=== PATIENT | female | born 1980 | race Caucasian/White ===

== ENCOUNTER 2024-12-28 10:04 | Observation (INO) ==
[2024-12-28] MEDS: ALBUT/IPRATROP 3MG/0.5MG NEB 3 ML VIAL NEB STA (11:13)
[2024-12-28] MEDS: methylPREDNISolone 125 MG/2 ML VIAL IV STA (11:13)
[2024-12-28] MEDS: LORazepam 1 MG TAB SL STA (11:30)
--- NOTE | 2024-12-28 11:32 | XRay Report ---
XR chest 1V portable CLINICAL HISTORY: Chest pain, nonspecific COMPARISON STUDY: No previous studies for comparison. FINDINGS: Lung volumes are normal. Lungs are clear. There is no pneumothorax or pleural effusion. The re is mild enlargement of the cardiac silhouette. Mediastinal contours are normal. There is no eviden ce for pulmonary edema. IMPRESSION: No acute cardiopulmonary findings. Mild enlargement of the cardiac silhouette. ACT 112: Negative or not required by law. Electronically signed by: Jose M Lewis M.D. 12/28/2024 11:31 AM
[2024-12-28 11:34] LABS: Basophils # (auto) 0.06 K/uL (0.00-0.20); Basophils % (auto) 0.8 %; Eosinophils # (auto) 0.16 K/uL (0.00-0.50); Eosinophils % (auto) 2.1 %; Hematocrit (blood only) 37.7 % (37.0-47.0); Hemoglobin 12.5 g/dl (12.0-16.0); Immature Granulocytes # (auto) 0.03 K/uL (0.01-0.20); Immature Granulocytes % (auto) 0.4 %; Lymphocytes # (auto) 2.22 K/uL (1.20-3.40); Lymphocytes % (auto) 29.8 %; Mean Corpuscular Hemoglobin 28.7 pg (25.0-34.0); Mean Corpuscular Hgb Conc 33.2 g/dL (32.0-36.0); Mean Corpuscular Volume 86.5 fL (80.0-100.0); Monocytes # (auto) 0.56 K/uL (0.11-0.59); Monocytes % (auto) 7.5 %; Neutrophils # (auto) 4.43 K/uL (1.40-6.50); Neutrophils % (auto) 59.4 %; Platelet Count 240 K/uL (130-400); RDW Coefficient of Variation 13.8 % (11.5-14.5); RDW Standard Deviation 43.8 fL (36.4-46.3); Red Blood Count 4.36 M/uL (4.20-5.40); White Blood Count 7.46 K/ul (4.8-10.8)
[2024-12-28 11:44] LABS: Bilirubin,Total 0.4 mg/dl (0.2-1.0); Calcium 8.4 mg/dl (8.6-10.3); Potassium 3.5 mmol/L (3.5-5.1)
[2024-12-28 11:50] LABS: Albumin Globulin Ratio 1.3 (0.9-2); BUN Creatinine Ratio 10.6 (10-20)
[2024-12-28 12:06] LABS: Troponin I High Sensitivity 16.3 pg/ml (0-14)
[2024-12-28 12:09] LABS: Adenovirus PCR Not Detected (NotDetected); Bordetella parapertussis PCR Not Detected (NotDetected); Bordetella pertussis PCR Not Detected (NotDetected); Chlamydia pneumoniae PCR Not Detected (NotDetected); Coronavirus 229E PCR Not Detected (NotDetected); Coronavirus CoV-2 (COVID19)PCR Not Detected (NotDetected); Coronavirus HKU1 PCR Not Detected (NotDetected); Coronavirus NL63 PCR Not Detected (NotDetected); Coronavirus OC43PCR DETECTED (NotDetected); Human Metapneumovirus PCR Not Detected (NotDetected); Influenza A PCR Not Detected (NotDetected); Influenza B PCR Not Detected (NotDetected); Mycoplasma pneumoniae PCR Not Detected (NotDetected); Parainfluenza Virus 1 PCR Not Detected (NotDetected); Parainfluenza Virus 2 PCR Not Detected (NotDetected); Parainfluenza Virus 3 PCR Not Detected (NotDetected); Parainfluenza Virus 4 PCR Not Detected (NotDetected); Respiratory Syncytial VirusPCR Not Detected (NotDetected); Rhinovirus/Enterovirus PCR Not Detected (NotDetected)
--- NOTE | 2024-12-28 13:40 | History & Physical Report ---
Date of Service December 28, 2024 Assessment & Plan (1) Chest pain: (2) Coronavirus infection: (3) Hypertensive urgency: Plan Liza Verdugo is a 44y/o F with PMHx significant for CAD, UT in 2023, asthma, GERD, fibromyalgia, bipolar disorder, tobacco use disorder and drug a buse in remission who presented to the ED via EMS from [facility] in [place] with complaints of cough, SOB and chest pain. Refer to HPI for further details. Chest Pain - ACS R/O CAD, H/O UT in January 2024: Appears pleuritic in nature 2/2 persistent cough ISO coronavirus OC43 infection. EKG NSR, no acute ST changes. Initial troponin 16.3 --> repeat troponin 22.5; will continue to trend troponin Q4H for now. Obtain resting echocardiogram. Telemetry monitoring. Starting metoprolol succinate 25mg daily. Consider cardiology consult if troponin uptrending or recurrent chest pain. EKG daily x 2. EKG with chest pain PRN. Coronavirus OC43 Infection: Doxycycline 100mg BID x 5 days for suspected superimposed bacterial bronchitis. Supportive care with PRN Duonebs, PRN Tessalon Perles. Encourage ISP and flutter valve use. Mucinex BID. Noted TTP of L upper calf region on exam. Check BLE venous doppler US to r/o DVTs. Continue 81mg ASA daily. HTN Urgency: BP elevated at 163/103 at the time of admission. Starting metoprolol succinate 25mg daily as per above. Also starting losartan 25mg daily. Continue to monitor BP closely and titrate meds PRN. IV labetalol 5mg Q4H PRN for SBP>170. Other Chronic Medical Conditions: Tobacco Use Disorder - Nicotine patch ordered. Drug Abuse in Remission - Continue Suboxone. Bipolar Disorder - Continue Ativan. DVT Prophylaxis: SQ Lovenox Code Status: FULL CODE PCP: NO PCP - Recently relocated to [place], [place] from [place], [place]. Will need to get patient established with a PCP. Disposition: Admit to Med/Telemetry for further inpatient evaluation and management. Patient seen in collaboration with Dr. Plata. Please see addendum. I spent a total of 45 minutes coordinating, documenting, and providing care for this patient excluding time spent in the performance of separately billed services or time spent by another provider/QHP. This included personally reviewing all current laboratories and imaging studies, medical reconciliation, outpatient chart review and discussion with specialists. This chart was completed in part utilizing Speech Voice Recognition Software. Grammatical errors, random word insertions, pronoun errors, and incomplete sentences are an occasional consequence of this system due to software limitations, ambient noise, and hardware issues. Any formal questions or concerns about the content, text, or information contained within the body of this dictation should be directly addressed to the provider for clarification. History of Present Illness Chief Complaint: URI Symptoms x 1 Week, Chest Pain Primary Care Provider: NO PCP Liza Verdugo is a 44y/o F with PMHx significant for CAD, UT in 2023, asth ma, GERD, fibromyalgia, bipolar disorder, tobacco use disorder and drug abuse in remission who presented to the ED via EMS from [facility] in [place] with complaints of cough, SOB and chest pain. History obtained from the patient and associated chart review. Patient reports that she recently moved back to [place], [place] from [place] about 1 month ago. She is originally from [place], [place]. She endorses having URI symptoms for the past week including sinus congestion, productive cough, intermittent fevers and SOB. She reports that her cough has become more frequent and is productive of green/yellow sputum. Had a fever last of 101.4F which she treated with Tylenol. No further fevers recorded since then. She has been taking [id number] Mucinex without much improvement in her congestion. Known history of asthma. Unfortunately did not have an albuterol inhaler available at home due to prior lapse in health insurance. S/p 60mg IV Solu-Medrol, albuterol neb x 1 and 1mg SL Ativan in the ED. Feels her breathing is improved at the time of our conversation. She woke up this morning with L-sided chest pain that radiated up into her L neck region and was worse with deep breathing. Patient mentions that this has happened a few times before since her URI symptoms started but seemed slightly worse compared to previous episodes therefore she decided to go to [facility] in [place] for evaluation today given her prior cardiac history before ultimately being transferred here for further evaluation. S/p 324mg ASA and SL nitroglycerin x 1 en route to ED. She reports improvement in her chest pain at the time of our conversation but does mention it reoccurs when she takes a deep breath. She also notes some pain in her L calf region which started last evening. Of note, patient has been increasingly sedentary since her URI symptoms started last week. She endorses a history of "floating blood clots" in her LLE back in either 2019 or 2020 but denies any prior anticoagulation use. She does smoke about 1ppd, which she has been doing since she has been a teenager. No alcohol use. Reports history of narcotic pain medication abuse but is in remission of daily Suboxone therapy. Also endorses recreational marijuana use. Not currently established with a PCP in the area. Recently was able to get health insurance a few weeks ago. Previous UT back in January 2024 where she was admitted to [facility] in [place], [place]. Had a cardiac catheterization done at that time with no stents placed however she mentions she was told she had CAD. Unfortunately she has had poor cardiology follow-up as an outpatient due to her prior lapse in health insurance and she is not in possession of any of her prior medical records. BP was 227/109 per EMS during their initial evaluation. BP was 163/103 at the time of my evaluation. Otherwise she remains hemodynamically stable. Saturating well on RA. CXR with no evidence of consolidation. Allergies Allergy/AdvReac Type Severity Reaction Status Date / Time codeine Allergy Intermediate RASH Unverified 12/28/24 14:01 ketorolac Allergy Mild RASH Verified 12/28/24 14:01 morphine Allergy Mild RASH Unverified 12/28/24 14:01 tromethamine Allergy Mild RASH Verified 12/28/24 14:01 azithromycin AdvReac Mild Abdominal Verified 12/28/24 14:01 Pain Home Medications Medication Instructions Recorded Confirmed Type aspirin 81 mg tablet,delayed 81 mg PO DAILY 12/28/24 12/28/24 History release buprenorphine 8 mg-naloxone 2 mg 0.5 - 1 tab sublingual TID 12/28/24 12/28/24 History sublingual tablet lorazepam 2 mg tablet 2 mg PO TID 12/28/24 12/28/24 History potassium 99 mg tablet 99 mg PO DAILY 12/28/24 12/28/24 History Past Med/Surg History Problem List (Updated 12/28/24 @ 15:22 by Emelyn Rodriguez PA-C) Hypertensive urgency Chest pain Coronavirus infection Social History Smoking Status: Current every day smoker Tobacco Type: Cigarettes Cigarettes Per Day: 30; Second Hand Exposure: No; Do You Dip or Chew Tobacco: No; Hx Alcohol Use: No Hx Substance Use: No Preferred Language: Cypriot Communication Ability: Effective Vehicle Refinisher Required: No Beliefs That Will Affect Care: None Current Living Situation: Alone Other Information That Helps Us Care for You: No Feels Safe at Home: Yes Safety Concerns: Feels Safe At This Time Assistive Devices: Contacts and Glasses Review of Systems Review of Systems: At least ten systems reviewed and negative, except as noted in the HPI. Physical Exam Physical Exam: General: WD/WN, vitals as above, NAD, sitting up in bed, conversing appropriately. A+Ox3. HEENT: Normocephalic, atraumatic. Conjunctivae normal. External ear and nose normal, oropharynx normal. Respiratory: Normal respiratory effort, lungs clear to auscultation, no wheeze/rales/rhonchi. No accessory muscle use. Cardiovascular: Regular rate, rhythm, normal peripheral pulses, no BLE edema. TTP of L upper calf region. Abdomen/GI: Normal bowel sounds, soft, nondistended, nontender to palpation in all quadrants. Extremities/Musculoskeletal: No cyanosis or clubbing, extremities motor strength intact, moves all extremities. Neurologic: No overt focal deficits, CN's II-XI not formally tested but appear grossly intact bilaterally. Results & Data Results & Data Vital Signs (Past 12 Hours) Vital Signs Temp Pulse Resp BP Pulse Ox O2 Del Method 12/28/24 13:00 149/84 H 12/28/24 12:57 71 16 96 12/28/24 12:30 70 15 95 12/28/24 12:03 68 13 94 12/28/24 12:00 154/86 H 12/28/24 11:57 65 15 94 12/28/24 11:33 69 17 95 12/28/24 11:33 95 Room Air 12/28/24 11:30 166/91 H 12/28/24 11:27 65 14 100 12/28/24 11:09 67 17 95 12/28/24 11:00 169/100 H 12/28/24 10:36 78 19 98 12/28/24 10:35 86 12/28/24 10:33 103 H 17 97 12/28/24 10:31 170/89 H 12/28/24 10:29 98 Room Air 12/28/24 10:08 37.2 C 82 20 148/99 H 98 Room Air Laboratory Results Short CBC 12/28/24 Range/Units 10:13 WBC 7.46 (4.8-10.8) K/ul Hgb 12.5 (12.0-16.0) g/dl Hct 37.7 (37.0-47.0) % Plt Count 240 (130-400) K/uL BMP 12/28/24 10:13 Sodium 138 Potassium 3.5 Chloride 102 Carbon Dioxide 28 BUN 7 Creatinine 0.66 Glucose 112 H Calcium 8.4 L Liver Function 12/28/24 Range/Units 10:13 Total Bilirubin 0.4 (0.2-1.0) mg/dl AST 22 (13-39) U/L ALT 15 (7-52) U/L Alkaline Phosphatase 64 (34-104) U/L Albumin 4.0 (3.4-5.0) gm/dl Diagnostic Findings Chest X-Ray 12/28/24 11:04 XR chest 1V portable CLINICAL HISTORY: Chest pain, nonspecific COMPARISON STUDY: No previous studies for comparison. FINDINGS: Lung volumes are normal. Lungs are clear. There is no pneumothorax or pleural effusion. There is mild enlargement of the cardiac silhouette. Mediastinal contours are normal. There is no evidence for pulmonary edema. IMPRESSION: No acute cardiopulmonary findings. Mild enlargement of the cardiac silhouette. ACT 112: Negative or not required by law. Electronically signed by: Jose M Lewis M.D. 12/28/2024 11:31 AM Medications Administered Discontinued Medications Albuterol (Albut/Ipratrop 3mg/0.5mg Neb 3 Ml Vial) 3 ml NEB NOW STA; Protocol Stop: 12/28/24 11:06 Last Admin: 12/28/24 11:13 Dose: 3 ml Documented By: KEYUR Lorazepam (Lorazepam 1 Mg Tab) 1 mg SL NOW STA Stop: 12/28/24 11:21 Last Admin: 12/28/24 11:30 Dose: 1 mg Documented By: KEYUR Methylprednisolone (Methylprednisolone 125 Mg/2 Ml Vial) 60 mg IV NOW STA Stop: 12/28/24 11:06 Last Admin: 12/28/24 11:13 Dose: 60 mg Documented By: TNK Code Status & VTE Plan Code Status FULL CODE Supervising Physician Co-Signing Physician Notes 44y/o F with PMH of CAD, UT in January 2024 [no stents per pt, pt failed to f/u w/ cardio after that, says due to insurance issues], asthma, GERD, fibromyalgia, bipolar disorder, tobacco use disorder and prescription drug abuse in remission who presented to the ED via EMS with complaints of cough, SOB and chest pain mostly w/ deep breathing, starting last evening. Pt reports flu like illness for about a week, cough w/ greenish sputum, fever upto 101.4F about a week ago. Yesterday had left sided chest pain, worse w/ deep breathing, going up to her left neck. S/p 324mg ASA and SL nitroglycerin x 1 en route to ED per EMS. Pt reports improvement in chest pain but reports she gets it still w/ deep breath. Labs reviewed, cbc/rft fairly wnl. Trop 16.3 --> 22.5. LFT and lipase wnl. Coronavirus +ve. EKG w/ NSR, no acute ST-T changes. CXR w/ enlarged cardiac silhouette, no acute findings. coronavirus (non covid) URTI Likely superimposed bacterial bronchitis Tessalon Perles, Mucinex, DuoNebs as needed, supportive management, doxycycline. Incentive spirometer. Chest pain rule out ACS: Chest pain appears pleuritic in nature, given recent history of UT and non compliance, will trend troponin & get echo. Consider cardiology consult if troponin uptrending or recurrent chest pain. Will start her on metoprolol succinate 25 Mg daily. Hypertensive urgency: Blood pressure elevated at presentation, patient being started on metoprolol, start losartan 25 mg daily starting today. Gradually uptitrate blood pressure medication. Labetalol 5 Mg every 4 hours as needed for systolic pressure greater than 170 mmHg. Tobacco abuse: nicotine patch Pt reports calf pain, and states she was told she had dvt in the past but never prescribed blood thinner. will get doppler ble us to ro dvt. On exam: GENERAL: Alert and oriented x3. NAD, on RA. HEENT: No pallor, no icterus. Pupils equal, round and reactive to light. Oral mucosa moist. NECK: No JVD, no neck masses. HEART: S1 and S2 heard. Regular rate and rhythm. HR in 90s. No murmur, no gallop. RESPIRATORY SYSTEM: Normal AP diameter. No accessory muscle use. No wheezing, no crackles. CTA ABDOMEN: Soft, bowel sounds present, nontender, no distention. CENTRAL NERVOUS SYSTEM: No facial droop. Speech is clear. Obeys simple commands. Moves extremities. EXTREMITIES: No edema, no erythema seen. I have seen and examined the patient and have discussed the case with the provider above. I agree with the assessment and plan as stated. Time spent: 35 min (1) Chest pain Chest pain type: unspecified Qualified Code(s): R07.9 - Chest pain, unspecified
--- NOTE | 2024-12-28 15:32 | Ultrasound Report ---
BILATERAL LOWER EXTREMITY VENOUS DOPPLER HISTORY: Acute pain and swelling of the lower legs R/o DVT COMPARISON STUDY: None. FINDINGS: There is normal compressibility, flow, and augmentation within the bilateral lower extremit y deep venous systems. IMPRESSION: No DVT within the right or left lower extremity. ACT 112: Negative or not required by law. Electronically signed by: Niko Kearney M.D. 12/28/2024 3:31 PM
[2024-12-28] MEDS: ADVANCED PROBIOTIC 625 MG CAPSULE PO STA (16:07)
[2024-12-28] MEDS: METOPROLOL SUCC 25MG EXT REL TAB PO SCH (16:07)
[2024-12-28] MEDS: DOXYCYCLINE HYCLATE 100 MG CAP PO STA (16:07)
[2024-12-28] MEDS ORDERED: LEVALBUTEROL HCL 0.63 MG/3 ML NEB NEB PRN (17:27)
[2024-12-28] MEDS ORDERED: ACETAMINOPHEN 325 MG TAB PO PRN (17:27)
[2024-12-28] MEDS ORDERED: POLYETHYLENE (MIRALAX) 17 GM PACK PO PRN (17:27)
[2024-12-28] MEDS ORDERED: ALBUT/IPRATROP 3MG/0.5MG NEB 3 ML VIAL NEB PRN (17:27)
[2024-12-28] MEDS ORDERED: LABETALOL HCL IV 5 MG/ML 20ML IV PRN (17:27)
[2024-12-28] MEDS ORDERED: MAGNESIUM HYDROXIDE SUSP 30 ML UDC PO PRN (17:27)
[2024-12-28] MEDS ORDERED: ONDANSETRON INJ 2 MG/ML 2 ML VIAL IV PRN (17:27)
[2024-12-28] MEDS ORDERED: BENZONATATE 100 MG CAPSULE PO PRN (17:27)
[2024-12-28] MEDS ORDERED: ALUMINUM/MAGNESIUM SUSP 30 ML UDC PO PRN (17:27)
[2024-12-28] MEDS: LOSARTAN POTASSIUM 25 MG TAB PO SCH (18:50)
[2024-12-28] MEDS: ENOXAPARIN INJ 40 MG/0.4 ML SYR SQ SCH (18:50)
[2024-12-28] MEDS: NICOTINE 21 MG/24 HR TDSY TD SCH (18:51)
[2024-12-28] MEDS: BUPRENORPHINE/NALOXONE 8/2 MG TAB SL SCH (20:12)
[2024-12-28] MEDS: DOXYCYCLINE HYCLATE 100 MG CAP PO SCH (20:12)
[2024-12-28] MEDS: LORazepam 1 MG TAB PO SCH (20:13)
[2024-12-28] MEDS: guaiFENesin 600 MG TABCR PO SCH (20:13)
[2024-12-29] MEDS: hydrOXYzine HCl 25 MG TAB PO PRN (04:07)
[2024-12-29 07:36] VITALS: RESP 18
[2024-12-29] MEDS: ADVANCED PROBIOTIC 625 MG CAPSULE PO SCH (07:44)
[2024-12-29] MEDS: ASPIRIN 81 MG ECTAB PO SCH (07:45)
[2024-12-29] MEDS: BUPRENORPHINE/NALOXONE 8/2 MG TAB SL ONE (07:48)
[2024-12-29] MEDS: buprenorphine HCL 8 MG SUBL SL ONE (07:48)
[2024-12-29] MEDS: buprenorphine HCL 8 MG SUBL SL SCH (07:48)
[2024-12-29 07:50] LABS: Hematocrit (blood only) 36.7 % (37.0-47.0); Hemoglobin 11.9 g/dl (12.0-16.0); Mean Corpuscular Hemoglobin 28.2 pg (25.0-34.0); Mean Corpuscular Hgb Conc 32.4 g/dL (32.0-36.0); Mean Platelet Volume 9.6 fL (9.4-12.4); Platelet Count 266 K/uL (130-400); RDW Coefficient of Variation 13.7 % (11.5-14.5); RDW Standard Deviation 43.5 fL (36.4-46.3); Red Blood Count 4.22 M/uL (4.20-5.40); White Blood Count 9.31 K/ul (4.8-10.8)
[2024-12-29 08:10] LABS: BUN Creatinine Ratio 22.5 (10-20); Calcium 8.5 mg/dl (8.6-10.3); Creatinine Clr Calc Pharmacy 113.6 ml/min; Phosphorus 2.2 mg/dl (2.5-4.9); Potassium 3.9 mmol/L (3.5-5.1)
[2024-12-29 11:02] VITALS: PULSE 74; TEMP 97.9; O2SAT 96
--- NOTE | 2024-12-29 11:09 | Discharge Summary ---
Discharge Summary Date of Service December 29, 2024 Principal Dx & Hospital Course #1 = Principal Diagnosis (1) Coronavirus infection: (2) Viral pleurisy: (3) Uncontrolled hypertension: Plan Patient presenting to the emergency room with chest pain and symptoms associated with a URI. In the emergency room she was diagnosed with coronavirus infection, not COVID infection in the ED. Troponins were very mildly elevated and was referred for further evaluation. Patient was cared for in the hospital. She was also noted to be hypertensive. She was started on losartan and Toprol XL. Her blood pressure started to improve with these interventions. She did not require any oxygen supplementation. Her troponins were trended and normalized. No evidence of any acute coronary syndrome. In the day of discharge she was feeling improved. Will help coordinate outpatient PCP appointment. She will be discharged home to follow-up with them and continue to monitor her chronic medical issues. Notes For Next Care Provider May need additional titration of blood pressure medications Medication Changes From Visit Losartan Toprol Guaifenesin Tessalon Admission HPI Per Admitting Provider Liza Verdugo is a 44y/o F with PMHx significant for CAD, OK in 2023, asthma, GERD, fibromyalgia, bipolar disorder, tobacco use disorder and drug abuse in remission who presented to the ED via EMS from [facility] in [place] with complaints of cough, SOB and chest pain. History obtained from the patient and associated chart review. Patient reports that she recently moved back to [place], [place] from [place] about 1 month ago. She is originally from [place], [place]. She endorses having URI symptoms for the past week including sinus congestion, productive cough, intermittent fevers and SOB. She reports that her cough has become more frequent and is productive of green/yellow sputum. Had a fever last of 101.4F which she treated with Tylenol. No further fevers recorded since then. She has been taking [id number] Mucinex without much improvement in her congestion. Known history of asthma. Unfortunately did not have an albuterol inhaler available at home due to prior lapse in health insurance. S/p 60mg IV Solu-Medrol, albuterol neb x 1 and 1mg SL Ativan in the ED. Feels her breathing is improved at the time of our conversation. She woke up this morning with L-sided chest pain that radiated up into her L neck region and was worse with deep breathing. Patient mentions that this has happened a few times before since her URI symptoms started but seemed slightly worse compared to previous episodes therefore she decided to go to [facility] in [place] for evaluation today given her prior cardiac history before ultimately being transferred here for further evaluation. S/p 324mg ASA and SL nitroglycerin x 1 en route to ED. She reports improvement in her chest pain at the time of our conversation but does mention it reoccurs when she takes a deep breath. She also notes some pain in her L calf region which started last evening. Of note, patient has been increasingly sedentary since her URI symptoms started last week. She endorses a history of "floating blood clots" in her LLE back in either 2019 or 2020 but d enies any prior anticoagulation use. She does smoke about 1ppd, which she has been doing since she has been a teenager. No alcohol use. Reports history of narcotic pain medication abuse but is in remission of daily Suboxone therapy. Also endorses recreational marijuana use. Not currently established with a PCP in the area. Recently was able to get health insurance a few weeks ago. Previous OK back in January 2024 where she was admitted to [facility] in [place], [place]. Had a cardiac catheterization done at that time with no stents placed however she mentions she was told she had CAD. Unfortunately she has had poor cardiology follow-up as an outpatient due to her prior lapse in health insurance and she is not in possession of any of her prior medical records. BP was 227/109 per EMS during their initial evaluation. BP was 163/103 at the time of my evaluation. Otherwise she remains hemodynamically stable. Saturating well on RA. CXR with no evidence of consolidation. Admission Exam Per Admitting Provider See H&P Discharge Exam Constitutional: Alert, nontoxic, no acute distress HEENT: Mucous membranes moist. Lungs: Decreased breath sounds, no wheezes CV: S1-S2, regular Abdomen: Soft, nontender, nondistended Extremities: No significant edema Neuro: No focal deficits Musculoskeletal: Some mild musculoskeletal tenderness to palpation anterior chest Psych: Cooperative, normal mood Updated Medication List Medication Instructions Recorded Confirmed Type aspirin 81 mg tablet,delayed 81 mg PO DAILY 12/28/24 12/28/24 History release buprenorphine 8 mg-naloxone 2 mg 0.5 - 1 tab sublingual TID 12/28/24 12/28/24 History sublingual tablet lorazepam 2 mg tablet 2 mg PO TID 12/28/24 12/28/24 History potassium 99 mg tablet 99 mg PO DAILY 12/28/24 12/28/24 History acetaminophen 325 mg tablet 650 mg (2 x 325 mg) PO Q4H PRN 12/29/24 Rx fever or pain #100 tabs benzonatate 100 mg capsule 100 mg PO TID PRN cough #30 caps 12/29/24 Rx guaifenesin 600 mg tablet, 1,200 mg (2 x 600 mg) PO Q12 PRN 12/29/24 Rx extended release 12 hr (Mucinex) congestion #30 tabs losartan 25 mg tablet 25 mg PO QAM #30 tabs 12/29/24 Rx metoprolol succinate 25 mg 25 mg PO QAM #30 tabs 12/29/24 Rx tablet,extended release 24 hr nicotine 21 mg/24 hr daily 1 patch transdermal QAM #7 ea 12/29/24 Rx transdermal patch (Nicoderm CQ) Hospital Stay Data Consultations 12/28/24 13:45 ED Decision to Admit Stat 12/28/24 17:27 HIM [Consult Health Information Management] Routine Diagnostic Imagining Performed 12/28/24 14:32 US venous doppler LE BI Urgent Reviewed imaging, laboratory and diagnostic studies. Pertinent findings as below. CBC BMP stable Troponin peaked at 22.5 then normalized x 3 at 10.4 Respiratory viral panel positive for coronavirus OC 4 3, non-COVID Echocardiogram showed normal ejection fraction greater than 70%, no significant wall motion abnormalities, refer to the full report for details Ultrasound lower extremity negative for DVT Pending Results Patient Have Any Pending Studies at Discharge: No Discharge Instructions Given to Patient (Per Discharging Provider) You have a viral infection. It will take a few days for you to start feeling better and back to your usual self Follow-up your blood pressure with your PCP, you may need additional titration of the blood pressure medications Total Time Total Time Spent Total Time Spent (In Minutes): 27
[2024-12-29 12:23] VITALS: BP 137/73
[2024-12-29] MEDS ORDERED: buprenorphine HCL 2 MG SUBL SL SCH (15:00)
[2024-12-29] MEDS ORDERED: BUPRENORPHINE/NALOXONE 8/2 MG TAB SL SCH (15:00)
--- NOTE | 2024-12-29 18:35 | Electrocardiogram Report ---
Test Reason : Blood Pressure : */* mmHG Vent. Rate : 81 BPM Atrial Rate : 81 BPM P-R Int : 154 ms QRS Dur : 76 ms QT Int : 356 ms P-R-T Axes : 71 35 171 degrees QTcB Int : 413 ms Normal sinus rhythm Possible Left atrial enlargement Left ventricular hypertrophy with repolarization abnormality ( Sokolow-Preston ) Cannot rule out Septal infarct , age undetermined Abnormal ECG No previous ECGs available Confirmed by Joshua López ([id number]) on 12/29/2024 6:35:15 PM Referred By: Confirmed By: Joshua López
--- NOTE | 2024-12-29 18:36 | Electrocardiogram Report ---
Test Reason : Blood Pressure : */* mmHG Vent. Rate : 70 BPM Atrial Rate : 70 BPM P-R Int : 146 ms QRS Dur : 100 ms QT Int : 422 ms P-R-T Axes : 59 43 224 degrees QTcB Int : 455 ms Normal sinus rhythm Possible Left atrial enlargement Left ventricular hypertrophy with repolarization abnormality Septal infarct Abnormal ECG When compared with ECG of 28-Dec-2024 10:08, T wave inversion more evident in Anterolateral leads Confirmed by Joshua López ([id number]) on 12/29/2024 6:36:19 PM Referred By: REFERRED SELF Confirmed By: Joshua López
--- NOTE | 2024-12-30 07:27 | Emergency Department Note ---
Impression & Plan Elevated troponin, Coronavirus infection, Atypical chest pain ED Provider Note CHIEF COMPLAINT: Cough, chest pain HISTORY OF PRESENT ILLNESS: This 44-year-old female patient past medical history of coronary artery disease, drug abuse, now on Suboxone, hypertension and anxiety with chronic tobacco use presents to the emergency department with complaints of a cough that has been persistent. She states she developed some left-sided chest discomfort that radiates into her neck today. She just moved back to the area and does not have a PCP. She states she spent a week in the hospital several months ago with pneumonia and had suffered a "heart attack" at that time. Patient denies any fever, vomiting or diarrhea. REVIEW OF SYSTEMS: A review of systems was performed with positives and pertinent negatives listed in the history of present illness. 10 systems were reviewed and are otherwise negative. ALLERGIES: see below MEDICATIONS: see below PMH: see below SOCIAL HISTORY: see below DDx: Pneumonia, pneumothorax, acute coronary syndrome, PE, cardiac arrhythmia among others. PHYSICAL EXAM: Vital signs reviewed. General: Well-appearing 44-year-old female, in no significant distress. HEENT: No scleral icterus, PERRLA, neck supple. Moist mucous membranes. Posterior reports is clear. Cardiovascular: Regular rate and rhythm, no extra sounds. Pulmonary: Faint scattered wheezing to auscultation bilaterally, normal work of breathing. Dry cough Abdomen: Soft, nontender, nondistended, positive bowel sounds. Musculoskeletal: Atraumatic, no peripheral edema. Neurologic: Patient awake alert and oriented x 3, speech is clear Skin: Warm, dry, no rash EMERGENCY DEPARTMENT COURSE/MDM: This patient was evaluated and appeared to be in no significant distress. The patient was pain-free at the time of my evaluation. She was requesting Ativan for anxiety. IV access was obtained and laboratory work was drawn. Patient's laboratory work reveals a slightly abnormal high-sensitivity troponin at 16.3. She has tested positive for coronavirus OC 43. Chest x-ray was obtained and is clear. EKG reveals a sinus rhythm with left atrial enlargement and likely LVH. Repeat troponin was performed and has trended slightly up. While I do suspect that this is a demand mediated event, the patient's history of coronary disease, tobacco smoking, lack of follow-up, she will require evaluation of the hospitalist service for further evaluation. Patient is aware of the plan and agrees. MONITORING: An order for cardiac monitoring was placed and the patient is noted to be in a normal sinus rhythm at 74 beats per minute. RADIOLOGY: Chest x-ray IMPRESSION: No acute cardiopulmonary findings. Mild enlargement of the cardiac silhouette. EKG: To my interpretation reveals a normal sinus rhythm at 81 bpm. Possible left atrial enlargement, LVH with repolarization abnormality, QTc of 413. No PVC, no PAC. DISPOSITION: Admission Past Med/Surg History Problem List (Updated 12/30/24 @ 07:42 by Gilma Salazar MD) Atypical chest pain (Acute) Elevated troponin (Acute) Uncontrolled hypertension Viral pleurisy Hypertensive urgency Chest pain Coronavirus infection (Acute) Social History Smoking Status: Current every day smoker Tobacco Type: Cigarettes Cigarettes Per Day: 30; Second Hand Exposure: No; Do You Dip or Chew Tobacco: No; Hx Alcohol Use: No Hx Substance Use: No Preferred Language: Georgian Communication Ability: Effective Supply Chain Project Manager Required: No Beliefs That Will Affect Care: None Current Living Situation: Alone Other Information That Helps Us Care for You: No Feels Safe at Home: Yes Safety Concerns: Feels Safe At This Time Assistive Devices: Contacts and Glasses Allergies Allergies Allergy/AdvReac Type Severity Reaction Status Date / Time codeine Allergy Intermediate RASH Unverified 12/28/24 14:01 ketorolac Allergy Mild RASH Verified 12/28/24 14:01 morphine Allergy Mild RASH Unverified 12/28/24 14:01 tromethamine Allergy Mild RASH Verified 12/28/24 14:01 azithromycin AdvReac Mild Abdominal Verified 12/28/24 14:01 Pain Home Meds Home Medications Medication Instructions Recorded Confirmed aspirin 81 mg tablet,delayed 81 mg PO DAILY 12/28/24 12/28/24 release buprenorphine 8 mg-naloxone 2 mg 0.5 - 1 tab sublingual TID 12/28/24 12/28/24 sublingual tablet lorazepam 2 mg tablet 2 mg PO TID 12/28/24 12/28/24 potassium 99 mg tablet 99 mg PO DAILY 12/28/24 12/28/24 Previous Rx's Medication Instructions Recorded acetaminophen 325 mg tablet 650 mg (2 x 325 mg) PO Q4H PRN 12/29/24 fever or pain #100 tabs benzonatate 100 mg capsule 100 mg PO TID PRN cough #30 caps 12/29/24 guaifenesin 600 mg tablet, 1,200 mg (2 x 600 mg) PO Q12 PRN 12/29/24 extended release 12 hr (Mucinex) congestion #30 tabs losartan 25 mg tablet 25 mg PO QAM #30 tabs 12/29/24 metoprolol succinate 25 mg 25 mg PO QAM #30 tabs 12/29/24 tablet,extended release 24 hr nicotine 21 mg/24 hr daily 1 patch transdermal QAM #7 ea 12/29/24 transdermal patch (Nicoderm CQ) Results & Data (ED) Home Medications Current Medication List: was personally reviewed by me Laboratory Data Attestation: I reviewed the patient's lab results. 12/29/24 07:02 12/29/24 07:02 Lab Results 12/28/24 12/28/24 12/28/24 Range/Units 10:13 10:14 12:22 WBC 7.46 (4.8-10.8) K/ul RBC 4.36 (4.20-5.40) M/uL Hgb 12.5 (12.0-16.0) g/dl Hct 37.7 (37.0-47.0) % MCV 86.5 (80.0-100.0) fL MCH 28.7 (25.0-34.0) pg MCHC 33.2 (32.0-36.0) g/dL RDW Std Deviation 43.8 (36.4-46.3) fL RDW Coeff of Solo 13.8 (11.5-14.5) % Plt Count 240 (130-400) K/uL MPV 10.0 (9.4-12.4) fL Immature Gran % (Auto) 0.4 % Neut % (Auto) 59.4 % Lymph % (Auto) 29.8 % [place] % (Auto) 7.5 % Eos % (Auto) 2.1 % Baso % (Auto) 0.8 % Neut # (Auto) 4.43 (1.40-6.50) K/uL Lymph # (Auto) 2.22 (1.20-3.40) K/uL [place] # (Auto) 0.56 (0.11-0.59) K/uL Eos # (Auto) 0.16 (0.00-0.50) K/uL Baso # (Auto) 0.06 (0.00-0.20) K/uL Immature Gran # (Auto) 0.03 (0.01-0.20) K/uL Sodium 138 (136-145) mmol/L Potassium 3.5 (3.5-5.1) mmol/L Chloride 102 (98-107) mmol/L Carbon Dioxide 28 (21-32) mmol/L Anion Gap 8 (3-11) BUN 7 (6-23) mg/dl Creatinine 0.66 (0.6-1.2) mg/dl Est Cr Clr Drug Dosing 125.0 ml/min eGFR 111.55 BUN/Creatinine Ratio 10.6 (10-20) Glucose 112 H (70-99(Fasting)) mg/dl Calcium 8.4 L (8.6-10.3) mg/dl Total Bilirubin 0.4 (0.2-1.0) mg/dl AST 22 (13-39) U/L ALT 15 (7-52) U/L Alkaline Phosphatase 64 (34-104) U/L Troponin I High Sens 16.3 H 22.5 H (0-14) pg/ml Total Protein 7.0 (6.0-8.3) gm/dl Albumin 4.0 (3.4-5.0) gm/dl Globulin 3.0 (2.5-4.0) gm/dl Albumin/Globulin Ratio 1.3 (0.9-2) Lipase 21 (11-82) U/L Adenovirus (PCR) Not Detected (NotDetected) B. pertussis DNA (PCR) Not Detected (NotDetected) B.parapertussis DNA PCR Not Detected (NotDetected) C. pneumoniae DNA (PCR) Not Detected (NotDetected) Coronavirus OC43 (PCR) DETECTED A (NotDetected) Coronavirus HKU1 (PCR) Not Detected (NotDetected) Coronavirus 229E (PCR) Not Detected (NotDetected) SARS-CoV-2 (PCR) Not Detected (NotDetected) Coronavirus NL63 (PCR) Not Detected (NotDetected) Human Metapneumovir PCR Not Detected (NotDetected) Influenza Type A (PCR) Not Detected (NotDetected) Influenza Type B (PCR) Not Detected (NotDetected) M. pneumoniae (PCR) Not Detected (NotDetected) Parainfluenza 1 (PCR) Not Detected (NotDetected) Parainfluenza 2 (PCR) Not Detected (NotDetected) Parainfluenza 3 (PCR) Not Detected (NotDetected) Parainfluenza 4 (PCR) Not Detected (NotDetected) RSV (PCR) Not Detected (NotDetected) Entero/Rhino (PCR) Not Detected (NotDetected) Administered Medications Discontinued Medications Albuterol (Albut/Ipratrop 3mg/0.5mg Neb 3 Ml Vial) 3 ml NEB NOW STA; Protocol Stop: 12/28/24 11:06 Last Admin: 12/28/24 11:13 Dose: 3 ml Documented By: KEYUR Aspirin (Aspirin 81 Mg Ectab) 81 mg PO DAILY [facility] Stop: 01/28/25 08:59 Last Admin: 12/29/24 07:45 Dose: 81 mg Documented By: ALEJANDRA Buprenorphine HCl (Buprenorphine Hcl 8 Mg Subl) 8 mg SL BID [facility] Stop: 01/28/25 08:59 Last Admin: 12/29/24 07:48 Dose: 8 mg Documented By: ALEJANDRA Buprenorphine HCl (Buprenorphine Hcl 8 Mg Subl) Confirm Administered Dose 8 mg SL .STK-MED ONE Stop: 12/29/24 07:47 Last Admin: 12/29/24 07:48 Dose: Not Given Documented By: ALEJANDRA Buprenorphine/Naloxone (Buprenorphine/Naloxone 8/2 Mg Tab) 1 tab SL BID [facility] Stop: 01/27/25 20:59 Last Admin: 12/28/24 20:12 Dose: 1 tab Documented By: ELISABETH Buprenorphine/Naloxone (Buprenorphine/Naloxone 8/2 Mg Tab) Confirm Administered Dose 1 tab SL .STK-MED ONE Stop: 12/29/24 07:39 Last Admin: 12/29/24 07:48 Dose: Not Given Documented By: ALEJANDRA Doxycycline Hyclate (Doxycycline Hyclate 100 Mg Cap) 100 mg PO NOW STA Stop: 12/28/24 14:46 Last Admin: 12/28/24 16:07 Dose: 100 mg Documented By: HORTENCIA Doxycycline Hyclate (Doxycycline Hyclate 100 Mg Cap) 100 mg PO BID [facility] Stop: 01/02/25 20:59 Last Admin: 12/29/24 07:45 Dose: 100 mg Documented By: Admin: 12/28/24 20:12 Dose: 100 mg Documented By: SMN Enoxaparin Sodium (Enoxaparin Inj 40 Mg/0.4 Ml Syr) 40 mg SQ Q24H [facility] Stop: 01/27/25 17:59 Last Admin: 12/28/24 18:50 Dose: 40 mg Documented By: CB Guaifenesin (Guaifenesin 600 Mg Tabcr) 1,200 mg PO Q12 [facility] Stop: 01/27/25 20:59 Last Admin: 12/29/24 07:44 Dose: 1,200 mg Documented By: Admin: 12/28/24 20:13 Dose: 1,200 mg Documented By: SMN Hydroxyzine HCl (Hydroxyzine Hcl 25 Mg Tab) 25 mg PO BID PRN PRN Reason: Anxiety/Agitation Stop: 01/28/25 03:43 Last Admin: 12/29/24 04:07 Dose: 25 mg Documented By: SMN Lactobacillus Acidophilus (Advanced Probiotic 625 Mg Capsule) 1,250 mg PO DAILY [facility] Stop: 01/28/25 08:59 Last Admin: 12/29/24 07:44 Dose: 1,250 mg Documented By: ALEJANDRA Lactobacillus Acidophilus (Advanced Probiotic 625 Mg Capsule) 1,250 mg PO NOW STA Stop: 12/28/24 14:53 Last Admin: 12/28/24 16:07 Dose: 1,250 mg Documented By: DM Lorazepam (Lorazepam 1 Mg Tab) 1 mg SL NOW STA Stop: 12/28/24 11:21 Last Admin: 12/28/24 11:30 Dose: 1 mg Documented By: TNK Lorazepam (Lorazepam 1 Mg Tab) 2 mg PO TID [facility] Stop: 01/27/25 20:59 Last Admin: 12/29/24 07:43 Dose: 2 mg Documented By: Admin: 12/28/24 20:13 Dose: 2 mg Documented By: SMN Losartan Potassium (Losartan Potassium 25 Mg Tab) 25 mg PO QAM [facility]INO Stop: 01/27/25 15:44 Last Admin: 12/29/24 07:43 Dose: 25 mg Documented By: Admin: 12/28/24 18:50 Dose: 25 mg Documented By: ALEJANDRA Methylprednisolone (Methylprednisolone 125 Mg/2 Ml Vial) 60 mg IV NOW STA Stop: 12/28/24 11:06 Last Admin: 12/28/24 11:13 Dose: 60 mg Documented By: KEYUR Metoprolol Succinate (Metoprolol Succ 25mg Ext Rel Tab) [facility] Stop: 01/27/25 14:44 Last Admin: 12/29/24 07:44 Dose: 25 mg Documented By: Admin: 12/28/24 16:07 Dose: 25 mg Documented By: ANI Miscellaneous (Remove Nicoderm Patch) 1 each N/A DAILY@[id number] [facility] Stop: 01/28/25 08:58 Last Admin: 12/29/24 07:43 Dose: 1 each Documented By: ALEJANDRA Nicotine (Nicotine 21 Mg/24 Hr Tdsy) 1 patch TD [facility] Stop: 01/27/25 17:26 Last Admin: 12/29/24 07:44 Dose: 1 patch Documented By: Admin: 12/28/24 18:51 Dose: 1 patch Documented By: ALEJANDRA Discharge Plan Visit Data Chief Complaint: Chest Pain Stated Complaint: CHEST PAIN, SOB ED Provider: Gilma Salazar Discharge Problem: Elevated troponin, Coronavirus infection, Atypical chest pain Patient Disposition: Admitted As Inpatient Discharge Instructions Interventions: ED Discharge Assessment Last Done: 12/28/24 17:08
== END 2024-12-29 12:43 | disposition home or self-care (01) | DRG 866 ==
LOC: ED 10:04 → INTOOBSV 13:47 → SUATTDRO 13:47 → 2N 13:47

== ENCOUNTER 2025-10-08 02:42 | Observation (INO) ==
--- NOTE | 2025-10-08 03:26 | XRay Report ---
EXAM: XR chest 1V portable CLINICAL HISTORY: Chest pain, nonspecific TECHNIQUE: Radiograph of chest was acquired. COMPARISON: None. FINDINGS: The lungs are clear and well-expanded with no pulmonary infiltrate or pleural effusion. The cardiomediastinal silhouette is within normal limits. No acute osseous abnormality. IMPRESSION: 1. No acute cardiopulmonary disease. Electronically signed by Freddie Billingsley 10-08-2025 03:26 AM
--- NOTE | 2025-10-08 03:29 | Emergency Department Note ---
Impression & Plan Chest pain, Hypertension ED Provider Note CHIEF COMPLAINT: Chest pain HISTORY OF PRESENT ILLNESS: This 45-year-old female patient presents to the emergency department via private vehicle for evaluation of chest pain. The patient states the pain started yesterday when she coughed 1 time and felt a popping sensation in the middle of her chest. She states she then developed severe chest pain which felt like a pressure sensation. She states the pain eventually went away, but she coughed again today and the pain returned. The patient does report a history of "2 heart attacks". She states she has never had a heart catheterization or a stent placed. She states she is on blood pressure medication and notes she does take the blood pressure medication regularly. The patient denies any associated shortness of breath or leg pain or swelling. She denies any history of DVT or PE. She states she has been told she has "floating clots" in the past but has never been anticoagulated. Patient denies any recent illness. No congestion, runny nose, sore throat. No fever. No nausea or vomiting. No other associated symptoms. History provided by: Patient REVIEW OF SYSTEMS: A 10 system review of systems was performed with positives and pertinent negatives listed in the history of present illness. All other systems were reviewed and are negative. ALLERGIES: Codeine, Toradol, morphine, tromethamine, azithromycin PHYSICAL EXAM: VITALS: Vitals are noted on the nurse's note and reviewed by myself. GENERAL: This is a 45-year-old female, in no acute distress, nondiaphoretic, well-developed well-nourished. SKIN: The skin was without rashes, erythema, edema, or bruising. There is no tenting of the skin. Capillary refill less than 2 seconds. HEAD: Normocephalic atraumatic. EYES: Conjunctivae without injection, sclerae without icterus. MOUTH: Mucous membranes moist. Tonsils are not enlarged. Pharynx without erythema or exudate. Uvula midline. Airway patent. Tongue does not deviate. NECK: Supple without nuchal rigidity. No lymphadenopathy. Cervical spine is nontender. No JVD. HEART: Regular rate and rhythm without murmurs gallops or rubs. LUNGS: Clear to auscultation bilaterally without wheezes, rales or rhonchi. No retractions or accessory muscle use. ABDOMEN: Positive bowel sounds x 4. Soft, nontender, without masses or organomegaly. Antonio sign negative. No guarding or rebound tenderness. MUSCULOSKELETAL: No muscle atrophy, erythema, or edema noted. Full range of motion without joint tenderness in all extremities. No tenderness to palpation. Normal gait. Strength 5/5 throughout. NEURO: Patient was alert and oriented to person place and time. No focal neurological deficits. An order was placed for continuous teletypesetter monitor. The monitor showed a normal sinus rhythm at a ventricular rate of 87 bpm, per my interpretation. EKG was reviewed by myself and found to be normal sinus rhythm at a rate of 84 beats per minute and per my interpretation reveals ST depression and T wave inversion in inferior leads which is new from prior EKG in 12/2024. Imaging as interpreted by myself and the radiologist revealed no consolidation, with radiologist interpretation as above. I agree with the radiologist's findings as based upon my independent interpretation. EMERGENCY DEPARTMENT COURSE: The patient was evaluated as above. The patient presents to the emergency department for chest pain. She describes pain after a popping sensation in the middle of her chest associated with coughing. She had an episode yesterday and another episode today. IV access was obtained, labs were drawn. The patient was hydrated with IV fluids. Labs reviewed. Per my interpretation, no leukocytosis or anemia. No thrombocytopenia. Renal function and electrolytes without significant abnormality. Transaminases elevated with an AST of 84 and ALT of 114. Troponin elevated at 17.1. D-dimer is elevated at 640. Chest x-ray completed and without evidence of consolidation. CT angiogram was completed due to elevated D-dimer. This is pending at the time of admission. Given the elevated troponin and new changes on inferior leads on EKG, and hypertension, I did recommend inpatient care. I discussed the case with Dr. Marcos, [facility] hospitalist physician. He did agree to evaluate the patient. Please see hospitalist dictation regarding ongoing management. Case was discussed with the attending physician. This visit is during a period of high volume and high acuity in the emergency department. I attest that I have personally reviewed the patient medication list. I attest that I have reviewed the patient's blood pressure and it was found to be elevated. Further management by hospitalist. GCS: 15 In the evaluation and treatment of this patient the following differential diagnoses were entertained: Cardiac ischemia, aortic dissection, pulmonary embolism, pneumothorax, pneumonia, pericarditis, myocarditis, esophageal rupture, GERD, cholecystitis, pancreatitis, musculoskeletal, as well as other pathologies. The chart was completed utilizing [employer] Speech voice recognition software. Grammatical errors, random word insertions, pronoun errors, and incomplete sentences are an occasional consequence of this system due to software limitations, ambient noise, and hardware issues. Any formal questions or concerns about the content, text, or information contained within the body of this dictation should be directly addressed to the provider for clarification. Past Med/Surg History Problem List (Updated 10/08/25 @ 06:13 by Anjelica Romo PA-C) Hypertension (Acute) Atypical chest pain (Acute) Uncontrolled hypertension Chest pain (Acute) Coronavirus infection (Acute) Medical History Elevated troponin Viral pleurisy Hypertensive urgency Social History Smoking Status: Current every day smoker Tobacco Type: Cigarettes Cigarettes Per Day: 30; Second Hand Exposure: No; Do You Dip or Chew Tobacco: No; Hx Alcohol Use: No Hx Substance Use: No Preferred Language: Indonesian Communication Ability: Effective Supervisor Prop Making Required: No Beliefs That Will Affect Care: None Current Living Situation: Alone Feels Safe at Home: Yes Assistive Devices: Contacts and Glasses Allergies Allergies Allergy/AdvReac Type Severity Reaction Status Date / Time codeine Allergy Intermediate RASH Verified 10/08/25 03:01 ketorolac Allergy Mild RASH Verified 10/08/25 03:01 morphine Allergy Mild RASH Verified 10/08/25 03:01 tromethamine Allergy Mild RASH Verified 10/08/25 03:01 azithromycin AdvReac Mild Abdominal Verified 10/08/25 03:01 Pain Home Meds Home Medications Medication Instructions Recorded Confirmed aspirin 81 mg tablet,delayed 81 mg PO DAILY 12/28/24 10/08/25 release buprenorphine 8 mg-naloxone 2 mg 1 tab sublingual TID 12/28/24 10/08/25 sublingual tablet lorazepam 2 mg tablet 2 mg PO TID 12/28/24 10/08/25 ibuprofen 200 mg tablet 800 mg PO Q6H PRN PAIN/ACHES 10/08/25 10/08/25 potassium gluconate 595 mg (99 mg) 595 mg PO DAILY 10/08/25 10/08/25 tablet Previous Rx's Medication Instructions Recorded guaifenesin 600 mg tablet, 1,200 mg (2 x 600 mg) PO Q12 PRN 12/29/24 extended release 12 hr (Mucinex) congestion #30 tabs losartan 25 mg tablet 25 mg PO QAM #30 tabs 12/29/24 metoprolol succinate 25 mg 25 mg PO QAM #30 tabs 12/29/24 tablet,extended release 24 hr Results & Data (ED) Vital Signs Vital Signs - 24 hr 10/08/25 02:37 10/08/25 02:49 10/08/25 02:51 Temperature 37.2 C Temperature Source Oral Pulse Rate 80 Pulse Rate [Right Finger] 69 Pulse Rhythm Pulse Rhythm [Right Finger] Regular Pulse Strength [Right Finger] Normal Respiratory Rate 16 18 Respiratory Effort / Characteristics Non-Labored Spontaneous Non-Labored Spontaneous Respiratory Depth Normal Normal Respiratory Pattern Regular Blood Pressure 212/107 H Blood Pressure [Right Arm] 212/107 H Blood Pressure Mean 142 Blood Pressure Mean [Right Arm] 142 Blood Pressure Position Lying Blood Pressure Position [Right Arm] Lying Pulse Oximetry 98 98 97 Oxygen Delivery Method Room Air Room Air Room Air Sepsis Recent Fever Within 48 Hours No Sepsis New/Unexplained Change in Mental Status N/A Sepsis Action Taken by Nursing No Action Required 10/08/25 02:55 10/08/25 02:58 10/08/25 04:37 Temperature Temperature Source Pulse Rate 67 87 Pulse Rate [Right Finger] 69 Pulse Rhythm Regular Pulse Rhythm [Right Finger] Regular Pulse Strength [Right Finger] Normal Respiratory Rate 15 16 Respiratory Effort / Characteristics Non-Labored Spontaneous Respiratory Depth Normal Respiratory Pattern Blood Pressure Blood Pressure [Right Arm] 158/92 H Blood Pressure Mean Blood Pressure Mean [Right Arm] 114 Blood Pressure Position Blood Pressure Position [Right Arm] Lying Pulse Oximetry 95 96 Oxygen Delivery Method Room Air Room Air Sepsis Recent Fever Within 48 Hours Sepsis New/Unexplained Change in Mental Status Sepsis Action Taken by Nursing Laboratory Data 10/08/25 03:36 10/08/25 03:36 Lab Results 10/08/25 Range/Units 03:36 WBC 9.00 (4.8-10.8) K/ul RBC 4.73 (4.20-5.40) M/uL Hgb 13.5 (12.0-16.0) g/dL Hct 40.1 (37.0-47.0) % MCV 84.8 (80.0-100.0) fL MCH 28.5 (25.0-34.0) pg MCHC 33.7 (32.0-36.0) g/dL RDW Std Deviation 40.0 (36.4-46.3) fL RDW Coeff of Solo 13.0 (11.5-14.5) % Plt Count 296 (130-400) K/uL MPV 9.1 L (9.4-12.4) fL Immature Gran % (Auto) 0.4 % Neut % (Auto) 69.8 % Lymph % (Auto) 23.4 % [place] % (Auto) 4.3 % Eos % (Auto) 1.4 % Baso % (Auto) 0.7 % Neut # (Auto) 6.27 (1.40-6.50) K/uL Lymph # (Auto) 2.11 (1.20-3.40) K/uL [place] # (Auto) 0.39 (0.11-0.59) K/uL Eos # (Auto) 0.13 (0.00-0.50) K/uL Baso # (Auto) 0.06 (0.00-0.20) K/uL Immature Gran # (Auto) 0.04 (0.01-0.20) K/uL D-Dimer 640 H* (0-500) ug/L FEU Sodium 138 (136-145) mmol/L Potassium 3.4 L (3.5-5.1) mmol/L Chloride 104 (98-107) mmol/L Carbon Dioxide 29 (21-32) mmol/L Anion Gap 5 (3-11) BUN 12 (6-23) mg/dl Creatinine 0.79 (0.6-1.2) mg/dl Est Cr Clr Drug Dosing 107.2 ml/min eGFR 94.53 BUN/Creatinine Ratio 15.2 (10-20) Glucose 106 H (70-99(Fasting)) mg/dl Calcium 8.1 L (8.6-10.3) mg/dl Total Bilirubin 0.3 (0.2-1.0) mg/dl AST 84 H (13-39) U/L ALT 114 H (7-52) U/L Alkaline Phosphatase 85 (34-104) U/L Troponin I High Sens 17.1 H (0-14) pg/ml Total Protein 6.5 (6.0-8.3) gm/dl Albumin 3.6 (3.4-5.0) gm/dl Globulin 2.9 (2.5-4.0) gm/dl Albumin/Globulin Ratio 1.2 (0.9-2) Lipase 28 (11-82) U/L Administered Medications Discontinued Medications Ioversol (Optiray 320 125ml) 125 ml IV ONCE ONE Stop: 10/08/25 05:44 Last Admin: 10/08/25 05:45 Dose: 118 ml Documented By: JANEE Imaging Data Radiologist's Impression: Chest X-Ray 10/08/25 02:55 EXAM: XR chest 1V portable CLINICAL HISTORY: Chest pain, nonspecific TECHNIQUE: Radiograph of chest was acquired. COMPARISON: None. FINDINGS: The lungs are clear and well-expanded with no pulmonary infiltrate or pleural effusion. The cardiomediastinal silhouette is within normal limits. No acute osseous abnormality. IMPRESSION: 1. No acute cardiopulmonary disease. Electronically signed by Freddie Billingsley 10-08-2025 03:26 AM Discharge Plan Visit Data Chief Complaint: Chest Pain Stated Complaint: CHEST PAIN ED Provider: Lexy Robles ED Midlevel Provider: Anjelica Romo Discharge Problem: Chest pain, Hypertension Patient Disposition: Admitted As Inpatient Condition: Good Forms Stand Alone Forms: [facility] Prescriptions Prescriptions: No Action aspirin 81 mg Tablet,Delayed Release (Dr/Ec) 81 mg PO DAILY lorazepam 2 mg Tablet 2 mg PO TID buprenorphine-naloxone 8-2 mg tablet, sublingual 1 tab sublingual TID guaifenesin [Mucinex] 600 mg Tablet Extended Release 12hr 1,200 mg PO Q12 PRN (Reason: congestion) Qty: 30 0RF losartan 25 mg Tablet 25 mg PO QAM Qty: 30 0RF metoprolol succinate 25 mg Tablet Extended Release 24 Hr 25 mg PO QAM Qty: 30 0RF ibuprofen 200 mg Tablet 800 mg PO Q6H PRN (Reason: PAIN/ACHES) potassium gluconate 595 mg (99 mg) Tablet 595 mg PO DAILY Referrals Referrals: Layla Alejandro CRNP [Primary Care Provider] -
[2025-10-08 03:51] LABS: Hematocrit (blood only) 40.1 % (37.0-47.0); Hemoglobin 13.5 g/dL (12.0-16.0); Immature Granulocytes # (auto) 0.04 K/uL (0.01-0.20); Immature Granulocytes % (auto) 0.4 %; Mean Corpuscular Hemoglobin 28.5 pg (25.0-34.0); Mean Corpuscular Volume 84.8 fL (80.0-100.0); Platelet Count 296 K/uL (130-400); RDW Standard Deviation 40.0 fL (36.4-46.3); Red Blood Count 4.73 M/uL (4.20-5.40); White Blood Count 9.00 K/ul (4.8-10.8)
[2025-10-08 04:10] LABS: Alanine Aminotransferase 114.0 U/L (7-52); Albumin Globulin Ratio 1.2 (0.9-2); Albumin Level 3.6 gm/dl (3.4-5.0); Alkaline Phosphatase 85.0 U/L (34-104); Anion Gap 5.0 (3-11); Bilirubin,Total 0.3 mg/dl (0.2-1.0); Blood Urea Nitrogen 12.0 mg/dl (6-23); Calcium 8.1 mg/dl (8.6-10.3); Carbon Dioxide 29.0 mmol/L (21-32); Chloride 104.0 mmol/L (98-107); Creatinine Clr Calc Pharmacy 107.2 ml/min; Globulin 2.9 gm/dl (2.5-4.0); Glucose 106.0 mg/dl (70-99(Fasting)); Lipase 28.0 U/L (11-82); Potassium 3.4 mmol/L (3.5-5.1); Sodium 138.0 mmol/L (136-145); Total Protein 6.5 gm/dl (6.0-8.3)
[2025-10-08] MEDS: OPTIRAY 320 125ml IV ONE (05:45)
[2025-10-08] MEDS: ACETAMINOPHEN 1,000 MG/100 ML VIAL IV STA (06:21)
[2025-10-08] MEDS: LABETALOL HCL IV 5 MG/ML 20ML IV PRN (06:24)
--- NOTE | 2025-10-08 06:29 | History & Physical Report ---
Date of Service October 08, 2025 Assessment & Plan (1) Chest pain: Plan: 45-year-old female with past medical history significant for hypertension, ongoing tobacco use, drug abuse in remission, bipolar disorder, anxiety and panic attacks, fibromyalgia, asthma, history of CAD, history of hepatitis C as per records comes in because of chest pain. Patient states since last three days is having left-sided chest pain. Initially the pain started with popping feeling in the chest after cough and also after climbing stairs carrying laundry basket. Initially pain was radiating to the right side of her abdomen and back. But currently pain is more located left side of her chest. Is constant pain. Sharp type of pain. 6/10 in severity. Patient thinks the pain is more with activity. Denies any headache. Vision is okay. No runny nose or sore throat. No cough. No fevers. Denies shortness of breath. No nausea. Patient states she always sweats. No abdominal pain. Normal bowel and bladder movements. Blood pressures was high in the ER. Patient states blood pressure medications are the same doses since last 1 year and lately blood pressure was somewhat running high at home. Chest pain Going on for last [address] depression and T wave inversions inferior leads Initial troponin 17 and repeat is 19 D-dimer 640. CTA chest no PE Will keep her n.p.o., Will Follow serial cardiac enzymes and echo Telemetry Consult cardiology for further recommendation Hypertensive urgency Continue home losartan and metoprolol IV labetalol as needed Close monitor History of CAD as per records [place] in 2023 as per records. Seems she had cardiac cath in [facility] in [place], [place]. No stents placed but she was told has CAD as per records. On aspirin and beta-kendra Ongoing tobacco abuse Counseling History of drug abuse On buprenorphine and naloxone Anxiety Panic attacks On lorazepam History of hepatitis C per records DVT prophylaxis SCDs for now Disposition Telemetry Full code. History of Present Illness Chief Complaint: Chest pain Primary Care Provider: BIB Ragland 45-year-old female with past medical history significant for hypertension, ongoing tobacco use, drug abuse in remission, bipolar disorder, anxiety and panic attacks, fibromyalgia, asthma, history of CAD, history of hepatitis C as per records comes in because of chest pain. Patient states since last three days is having left-sided chest pain. Initially the pain started with popping feeling in the chest after cough and also after climbing stairs carrying laundry basket. Initially pain was radiating to the right side of her abdomen and back. But currently pain is more located left side of her chest. Is constant pain. Sharp type of pain. 6/10 in severity. Patient thinks the pain is more with activity. Denies any headache. Vision is okay. No runny nose or sore throat. No cough. No fevers. Denies shortness of breath. No nausea. Patient states she always sweats. No abdominal pain. Normal bowel and bladder movements. Blood pressures was high in the ER. Patient states blood pressure medications are the same doses since last 1 year and lately blood pressure was somewhat running high at home. Past medical history. As mentioned above. Past surgical history. Tonsillectomy and adenoidectomy. Full dental extraction. Laparoscopic procedures of the abdomen. Cholecystectomy. Tubal ligation. Social history. Smokes 1 pack a day for last 34 years per record. Denies alcohol use. Occasional marijuana use. Family history. Mother had substance disorder. Mental disorder. Thyroid disorder. Hypertension. Asthma. Arthritis. Father has hypertension and asthma. Brother had CAD. Hypertension. Allergies Allergy/AdvReac Type Severity Reaction Status Date / Time codeine Allergy Intermediate RASH Verified 10/08/25 03:01 ketorolac Allergy Mild RASH Verified 10/08/25 03:01 morphine Allergy Mild RASH Verified 10/08/25 03:01 tromethamine Allergy Mild RASH Verified 10/08/25 03:01 azithromycin AdvReac Mild Abdominal Verified 10/08/25 03:01 Pain Home Medications Medication Instructions Recorded Confirmed Type aspirin 81 mg tablet,delayed 81 mg PO DAILY 12/28/24 10/08/25 History release buprenorphine 8 mg-naloxone 2 mg 1 tab sublingual TID 12/28/24 10/08/25 History sublingual tablet lorazepam 2 mg tablet 2 mg PO TID 12/28/24 10/08/25 History guaifenesin 600 mg tablet, 1,200 mg (2 x 600 mg) PO Q12 PRN 12/29/24 10/08/25 Rx extended release 12 hr (Mucinex) congestion #30 tabs losartan 25 mg tablet 25 mg PO QAM #30 tabs 12/29/24 10/08/25 Rx metoprolol succinate 25 mg 25 mg PO QAM #30 tabs 12/29/24 10/08/25 Rx tablet,extended release 24 hr ibuprofen 200 mg tablet 800 mg PO Q6H PRN PAIN/ACHES 10/08/25 10/08/25 History potassium gluconate 595 mg (99 mg) 595 mg PO DAILY 10/08/25 10/08/25 History tablet Past Med/Surg History Problem List (Updated 10/08/25 @ 06:13 by Anjelica Romo PA-C) Hypertension (Acute) Atypical chest pain (Acute) Uncontrolled hypertension Chest pain (Acute) Coronavirus infection (Acute) Medical History Elevated troponin Viral pleurisy Hypertensive urgency Social History Smoking Status: Current every day smoker Tobacco Type: Cigarettes Cigarettes Per Day: 30; Second Hand Exposure: No; Do You Dip or Chew Tobacco: No; Hx Alcohol Use: No Hx Substance Use: No Preferred Language: Ecuadorean Communication Ability: Effective Cheese Packer Required: No Beliefs That Will Affect Care: None Current Living Situation: Alone Feels Safe at Home: Yes Assistive Devices: Contacts and Glasses Review of Systems Review of Systems: All systems reviewed & are unremarkable except as noted in HPI & below Physical Exam Physical Exam: General- Not in distress Head- atraumatic Eyes- PERRL. ENT- oropharynx clear Neck- supple, no JVD. Lungs- clear to auscultation no wheezing or crackles Heart- regular rhythm; no murmur, no gallop. Abdomen- normal bowel sounds, soft, nontender, no distension Extremities- no pretibial edema, no erythema seen Neuro- alert, oriented PERRL, no facial palsy; no dysarthria; moves extremities Results & Data Results & Data Vital Signs (Past 12 Hours) Vital Signs Temp Pulse Pulse Resp BP BP Pulse Ox 10/08/25 04:37 69 16 158/92 H 96 10/08/25 02:58 87 10/08/25 02:55 67 15 95 10/08/25 02:51 97 10/08/25 02:49 37.2 C 80 18 212/107 H 98 10/08/25 02:37 69 16 212/107 H 98 O2 Del Method 10/08/25 04:37 Room Air 10/08/25 02:58 10/08/25 02:55 Room Air 10/08/25 02:51 Room Air 10/08/25 02:49 Room Air 10/08/25 02:37 Room Air Diagnostic Findings Laboratory Results WBC 9.00 K/ul (4.8-10.8) 10/08/25 03:36 RBC 4.73 M/uL (4.20-5.40) 10/08/25 03:36 Hgb 13.5 g/dL (12.0-16.0) 10/08/25 03:36 Hct 40.1 % (37.0-47.0) 10/08/25 03:36 MCV 84.8 fL (80.0-100.0) 10/08/25 03:36 MCH 28.5 pg (25.0-34.0) 10/08/25 03:36 MCHC 33.7 g/dL (32.0-36.0) 10/08/25 03:36 RDW Std Deviation 40.0 fL (36.4-46.3) 10/08/25 03:36 RDW Coeff of Solo 13.0 % (11.5-14.5) 10/08/25 03:36 Plt Count 296 K/uL (130-400) 10/08/25 03:36 MPV 9.1 fL (9.4-12.4) L 10/08/25 03:36 Immature Gran % (Auto) 0.4 % 10/08/25 03:36 Neut % (Auto) 69.8 % 10/08/25 03:36 Lymph % (Auto) 23.4 % 10/08/25 03:36 [place] % (Auto) 4.3 % 10/08/25 03:36 Eos % (Auto) 1.4 % 10/08/25 03:36 Baso % (Auto) 0.7 % 10/08/25 03:36 Neut # (Auto) 6.27 K/uL (1.40-6.50) 10/08/25 03:36 Lymph # (Auto) 2.11 K/uL (1.20-3.40) 10/08/25 03:36 [place] # (Auto) 0.39 K/uL (0.11-0.59) 10/08/25 03:36 Eos # (Auto) 0.13 K/uL (0.00-0.50) 10/08/25 03:36 Baso # (Auto) 0.06 K/uL (0.00-0.20) 10/08/25 03:36 Immature Gran # (Auto) 0.04 K/uL (0.01-0.20) 10/08/25 03:36 D-Dimer 640 ug/L FEU (0-500) H* 10/08/25 03:36 Sodium 138 mmol/L (136-145) 10/08/25 03:36 Potassium 3.4 mmol/L (3.5-5.1) L 10/08/25 03:36 Chloride 104 mmol/L (98-107) 10/08/25 03:36 Carbon Dioxide 29 mmol/L (21-32) 10/08/25 03:36 Anion Gap 5 (3-11) 10/08/25 03:36 BUN 12 mg/dl (6-23) 10/08/25 03:36 Creatinine 0.79 mg/dl (0.6-1.2) 10/08/25 03:36 Est Cr Clr Drug Dosing 107.2 ml/min 10/08/25 03:36 eGFR 94.53 10/08/25 03:36 BUN/Creatinine Ratio 15.2 (10-20) 10/08/25 03:36 Glucose 106 mg/dl (70-99(Fasting)) H 10/08/25 03:36 Calcium 8.1 mg/dl (8.6-10.3) L 10/08/25 03:36 Total Bilirubin 0.3 mg/dl (0.2-1.0) 10/08/25 03:36 AST 84 U/L (13-39) H 10/08/25 03:36 ALT 114 U/L (7-52) H 10/08/25 03:36 Alkaline Phosphatase 85 U/L (34-104) 10/08/25 03:36 Troponin I High Sens 17.1 pg/ml (0-14) H 10/08/25 03:36 Total Protein 6.5 gm/dl (6.0-8.3) 10/08/25 03:36 Albumin 3.6 gm/dl (3.4-5.0) 10/08/25 03:36 Globulin 2.9 gm/dl (2.5-4.0) 10/08/25 03:36 Albumin/Globulin Ratio 1.2 (0.9-2) 10/08/25 03:36 Lipase 28 U/L (11-82) 10/08/25 03:36 Impressions Chest X-Ray 10/08/25 02:55 EXAM: XR chest 1V portable CLINICAL HISTORY: Chest pain, nonspecific TECHNIQUE: Radiograph of chest was acquired. COMPARISON: None. FINDINGS: The lungs are clear and well-expanded with no pulmonary infiltrate or pleural effusion. The cardiomediastinal silhouette is within normal limits. No acute osseous abnormality. IMPRESSION: 1. No acute cardiopulmonary disease. Electronically signed by Freddie Billingsley 10-08-2025 03:26 AM ECG Additional Comments: ECG. Normal sinus rhythm rate of 84. Left ventricular hypertrophy with repolarization abnormality. ST depression inferior leads. T wave inversions inferior leads. T wave inversion seen in lateral leads which is present in old EKG. Code Status & VTE Plan VTE Prophylaxis Plan VTE Prophylaxis will be ordered: Yes
--- NOTE | 2025-10-08 06:38 | CT Scan Report ---
EXAM: CT angio chest PE protocol CLINICAL HISTORY: Chest pain, +Dimer TECHNIQUE: Contiguous axial images were obtained from the neck base through the upper abdomen following intravenous administration of iodinated contrast material. Angiographic images were processed, 3D MIP images were acquired for interpretation. If IV contrast material had not been administered, the likelihood of detecting abnormalities relevant to the patient's condition would have been substantially decreased. Coronal and sagittal 3-D MIPs were likewise performed and indicated to increase the sensitivity of detectin diffuse clinically relevant pathology. CT scan was performed according to ALARA (as low as reasonably achievable). COMPARISON: None. FINDINGS: Few atelectatic bands are noted involving left upper lobe. Adequate contrast bolus without evidence of pulmonary embolism. The central airways are patent. The lungs are clear. No pleural effusion. The heart, aorta, and pulmonary arteries are of normal size and configuration. There are no appreciable coronary artery and aortic atherosclerotic calcifications. No pericardial effusion is identified. The thyroid is unremarkable. No mediastinal, hilar, or axillary lymphadenopathy is noted. No suspicious lytic or sclerotic osseous lesions are identified. IMPRESSION: 1. No evidence of pulmonary embolism. Few atelectatic bands are noted involving left upper lobe. Electronically signed by Freddie Billingsley 10-08-2025 06:37 AM
[2025-10-08 07:53] LABS: Amphetamines+Metham, Urine Pos (Neg); MDMA (Ecstacy), Urine Neg (Neg); Marijuana, Urine Neg (Neg)
[2025-10-08] MEDS ORDERED: ACETAMINOPHEN 325 MG TAB PO PRN (08:38)
[2025-10-08] MEDS ORDERED: POLYETHYLENE (MIRALAX) 17 GM PACK PO PRN (08:38)
[2025-10-08] MEDS ORDERED: NITROGLYCERIN SL 0.4 MG/TAB TAB SL PRN (08:38)
[2025-10-08] MEDS: LOSARTAN POTASSIUM 25 MG TAB PO SCH (09:37)
[2025-10-08] MEDS: ASPIRIN 81 MG ECTAB PO SCH (09:38)
[2025-10-08] MEDS: METOPROLOL SUCC 25MG EXT REL TAB PO SCH (09:38)
[2025-10-08] MEDS: POTASSIUM CHLORIDE 10 MEQ TABCR PO SCH (09:39)
[2025-10-08] MEDS: LORazepam 1 MG TAB PO SCH (09:41)
[2025-10-08] MEDS: BUPRENORPHINE/NALOXONE 8/2 MG TAB SL SCH (09:42)
--- NOTE | 2025-10-08 09:51 | Cardiology Consultation ---
Date of Consultation October 08, 2025 Assessment & Plan (1) Atypical chest pain: (2) Uncontrolled hypertension: Plan Assessment: 45 year old female admitted for atypical chest pain, and hypertensive urgency. Plan: 1. Atypical chest pain 2. Uncontrolled HTN -EKG with no acute ST-T wave elevation. -Telemetry Sinus rhythm with no ectopy or arrhythmia -Concern of prior NSTEMI; however, this was determined to be in 2023 in the setting of pneumonia sepsis and patient did not follow up with cardiology due to lack of insurance -Discussed her symptoms and labs including a positive tox screening for methamphetamines. patient denies direct meth use, but reports "smoking weed laced in something". Patient can not have a stress test with methamphetamines in her system. -Resting echo shows preserved LVEF, no wall motion abnormalities and no significant valvular diease -blood pressures are very poorly controlled and also not safe for a stress test. her poorly controlled pressures may be a contributing factor for her symptoms. -Recommend that her Losartan be increased to 50mg by mouth daily, with an extra 25mg dose given now (to equal a full 50mg daily) -Continue Toprol xl as per current regimen -Continue Aspirin 81mg daily -Continue potassium supplementation, monitor serum electrolytes. -Once blood pressures are controlled, patient is appropriate for discharge and should establish OP cardiology care. Office will contact to establish care. Recommend outpatient stress test when blood pressures have cleared and tox screening is clear. Case has been discussed with Dr. Simmons. Further recommendations regarding plan of care as per his assessment. I spent a total of 50 minutes on the date of service in preparation, delivery, documentation of the care provided to the patient excluding any time spent in the performance of separately billed services. BIB [facility] Cardiology [facility] Supervising Physician Co-Signing Physician Notes Patient seen and examined. Past medical history, surgical history, social history and family history have been reviewed. The medical record and all the above studies have been reviewed. Case DW VERONICA including management. As pe patient she smoked street weed which could have been laced with other drugs -> Tox screen positive for methamphetamine Patient reportedly had Type II SC associated with Influenza B and bacterial PNA in [place] in 2023 HTN - uncontrolled Chest Pain - atypical Abnormal Troponin - likely due to demand ischemia and not indicative of Type I SC Substance abuse Hepatitis C Electrolyte abn - defer to hospitalist correct and f/u electrolytes f/u renal function ASA 81mg po daily continue Metoprolol xl increase losartan Start Norvasc adjust anti-HTN meds keeping systolic BP between 100-140 mmHg DVT prophylaxis drug abuse counseling salt restriction History of Present Illness Reason for Consultation: Chest pain; hypertensive urgency Requesting Physician: marina hospitalist Attending Physician: Orin Kim MD History of Present Illness HPI: 45 year old female with PMHx significant for CAD, HTN, tobacco use, drug abuse in remission, bipolar disorder/anxiety/panic attacks, fibromyalgia, Hep C presented to the ER with complaints of left sided chest pain x3 days. Initially described as a popping feeling after coughing and after carrying a laundry basket climbing stairs. Pain is described as a constant, sharp pain that varies in intensity, but does not go away. She states that it spreads across her chest on over her right abdomen (painting the picture of a sash across her). She denies any current shortness of breath, Near syncope, syncope or edema. Patient reports that she had two SC's, last one noted to be in [place] in 2023 but she never had a heart catheterization. We have obtained records from [facility] which shows that patient had a mildly elevated troponin in the setting of suspected demand ischemia from influenza and pneumonia/sepsis. Patient had undergone resting echocardiogram which showed LVEF 55-60% with no wall motion abnormalities and no significant valvular disease. She was recommended for discharge on antibiotics and to follow up with outpatient cardiology for further workup. Patient notes she was aware of this, but due to lack of insurance at that time, she did not follow up/establish care. EKG NSR, ST inversion in inferior leads. Rate 84bpm, QTC 432 ms D-dimer positive; CT chest negative IMPRESSION: 1. No evidence of pulmonary embolism. Few atelectatic bands are noted involving left upper lobe. Troponin 17.1/19.5 Tox screen positive for meth/amphetamine, other results pending. Review of telemetry shows SB/SR rates 50-60's. Allergies Allergy/AdvReac Type Severity Reaction Status Date / Time codeine Allergy Intermediate RASH Verified 10/08/25 03:01 ketorolac Allergy Mild RASH Verified 10/08/25 03:01 morphine Allergy Mild RASH Verified 10/08/25 03:01 tromethamine Allergy Mild RASH Verified 10/08/25 03:01 azithromycin AdvReac Mild Abdominal Verified 10/08/25 03:01 Pain Home Medications Medication Instructions Recorded Confirmed Type aspirin 81 mg tablet,delayed 81 mg PO DAILY 12/28/24 10/08/25 History release buprenorphine 8 mg-naloxone 2 mg 1 tab sublingual TID 12/28/24 10/08/25 History sublingual tablet lorazepam 2 mg tablet 2 mg PO TID 12/28/24 10/08/25 History guaifenesin 600 mg tablet, 1,200 mg (2 x 600 mg) PO Q12 PRN 12/29/24 10/08/25 Rx extended release 12 hr (Mucinex) congestion #30 tabs losartan 25 mg tablet 25 mg PO QAM #30 tabs 12/29/24 10/08/25 Rx metoprolol succinate 25 mg 25 mg PO QAM #30 tabs 12/29/24 10/08/25 Rx tablet,extended release 24 hr ibuprofen 200 mg tablet 800 mg PO Q6H PRN PAIN/ACHES 10/08/25 10/08/25 History potassium gluconate 595 mg (99 mg) 595 mg PO DAILY 10/08/25 10/08/25 History tablet Patient History Medical History Elevated troponin Viral pleurisy Hypertensive urgency Social History Smoking Status: Current every day smoker Tobacco Type: Cigarettes Cigarettes Per Day: 30; Second Hand Exposure: No; Do You Dip or Chew Tobacco: No; Hx Alcohol Use: No Hx Substance Use: No Preferred Language: Macanese Communication Ability: Effective Dispatcher Radioactive Waste Disposal Required: No Beliefs That Will Affect Care: None Current Living Situation: Alone Feels Safe at Home: Yes Safety Concerns: Feels Safe At This Time Assistive Devices: None Review of Systems Review of Systems: All systems reviewed & are unremarkable except as noted in HPI & below Physical Exam Constitutional: well developed and well nourished; no acute distress and not ill appearing Neck: normal visual inspection and trachea midline Respiratory: normal respiratory effort, lungs clear to auscultation Cardiovascular: Rate/Rhythm: regular rate and regular rhythm Heart Sounds: normal S1 and normal S2; no murmur Vessels: dorsalis pedis pulses present; no JVD Extremities: no edema Skin: no rashes, warm and dry Psychiatric: A+Ox3, euthymic affect Results & Data Vital Signs (Past 12 Hours) Vital Signs Temp Pulse Pulse Resp BP BP Pulse Ox 10/08/25 08:12 65 16 95 10/08/25 08:00 139/67 10/08/25 08:00 139/67 10/08/25 08:00 139/67 10/08/25 08:00 139/67 10/08/25 08:00 139/67 10/08/25 08:00 60 14 95 10/08/25 07:51 68 15 96 10/08/25 07:42 72 18 98 10/08/25 07:30 64 17 96 10/08/25 07:21 65 18 97 10/08/25 07:12 68 16 98 10/08/25 07:04 65 10/08/25 07:00 164/83 H 10/08/25 07:00 164/83 H 10/08/25 07:00 164/83 H 10/08/25 07:00 164/83 H 10/08/25 07:00 164/83 H 10/08/25 07:00 164/83 H 10/08/25 07:00 164/83 H 10/08/25 07:00 164/83 H 10/08/25 07:00 164/83 H 10/08/25 07:00 65 15 95 10/08/25 06:51 70 16 96 10/08/25 06:46 70 170/93 H 10/08/25 06:45 72 19 97 10/08/25 06:45 170/93 H 10/08/25 06:45 170/93 H 10/08/25 06:45 170/93 H 10/08/25 06:45 170/93 H 10/08/25 06:45 170/93 H 10/08/25 06:42 72 23 98 10/08/25 06:30 75 16 99 10/08/25 06:24 71 175/91 H 10/08/25 06:23 169/95 H 10/08/25 06:23 169/95 H 10/08/25 06:23 169/95 H 10/08/25 06:23 169/95 H 10/08/25 06:23 169/95 H 10/08/25 06:21 62 12 99 10/08/25 06:12 66 16 97 10/08/25 06:00 175/91 H 10/08/25 06:00 175/91 H 10/08/25 06:00 175/91 H 10/08/25 06:00 175/91 H 10/08/25 06:00 175/91 H 10/08/25 06:00 66 20 98 10/08/25 06:00 70 17 175/91 H 95 10/08/25 05:51 65 19 97 10/08/25 05:45 66 16 99 10/08/25 05:44 179/93 H 10/08/25 05:44 179/93 H 10/08/25 05:44 179/93 H 10/08/25 05:44 179/93 H 10/08/25 05:44 179/93 H 10/08/25 04:48 70 19 93 10/08/25 04:42 66 19 99 10/08/25 04:37 69 16 158/92 H 96 10/08/25 04:30 61 20 96 10/08/25 04:21 63 20 97 10/08/25 04:12 65 22 97 10/08/25 04:05 158/92 H 10/08/25 04:05 158/92 H 10/08/25 04:05 158/92 H 10/08/25 04:05 158/92 H 10/08/25 04:05 158/92 H 10/08/25 04:03 70 17 98 10/08/25 04:00 67 15 96 10/08/25 03:51 67 13 96 10/08/25 03:42 70 20 97 10/08/25 03:30 66 21 96 10/08/25 02:58 87 10/08/25 02:55 67 15 95 10/08/25 02:51 97 10/08/25 02:49 37.2 C 80 18 212/107 H 98 10/08/25 02:37 69 16 212/107 H 98 O2 Del Method 10/08/25 08:12 10/08/25 08:00 10/08/25 08:00 10/08/25 08:00 10/08/25 08:00 10/08/25 08:00 10/08/25 08:00 10/08/25 07:51 10/08/25 07:42 10/08/25 07:30 10/08/25 07:21 10/08/25 07:12 10/08/25 07:04 10/08/25 07:00 10/08/25 07:00 10/08/25 07:00 10/08/25 07:00 10/08/25 07:00 10/08/25 07:00 10/08/25 07:00 10/08/25 07:00 10/08/25 07:00 10/08/25 07:00 10/08/25 06:51 10/08/25 06:46 10/08/25 06:45 10/08/25 06:45 10/08/25 06:45 10/08/25 06:45 10/08/25 06:45 10/08/25 06:45 10/08/25 06:42 10/08/25 06:30 10/08/25 06:24 10/08/25 06:23 10/08/25 06:23 10/08/25 06:23 10/08/25 06:23 10/08/25 06:23 10/08/25 06:21 10/08/25 06:12 10/08/25 06:00 10/08/25 06:00 10/08/25 06:00 10/08/25 06:00 10/08/25 06:00 10/08/25 06:00 10/08/25 06:00 Room Air 10/08/25 05:51 10/08/25 05:45 10/08/25 05:44 10/08/25 05:44 10/08/25 05:44 10/08/25 05:44 10/08/25 05:44 10/08/25 04:48 10/08/25 04:42 10/08/25 04:37 Room Air 10/08/25 04:30 10/08/25 04:21 10/08/25 04:12 10/08/25 04:05 10/08/25 04:05 10/08/25 04:05 10/08/25 04:05 10/08/25 04:05 10/08/25 04:03 10/08/25 04:00 10/08/25 03:51 10/08/25 03:42 10/08/25 03:30 10/08/25 02:58 10/08/25 02:55 Room Air 10/08/25 02:51 Room Air 10/08/25 02:49 Room Air 10/08/25 02:37 Room Air Laboratory Results Cardiac Enzymes 10/08/25 10/08/25 10/08/25 Range/Units 03:36 06:35 09:51 AST 84 H (13-39) U/L Troponin I High Sens 17.1 H 19.5 H 18.3 H (0-14) pg/ml CBC 10/08/25 10/08/25 Range/Units 03:36 09:51 WBC 9.00 9.30 (4.8-10.8) K/ul RBC 4.73 4.32 (4.20-5.40) M/uL Hgb 13.5 12.3 (12.0-16.0) g/dL Hct 40.1 36.6 L (37.0-47.0) % Plt Count 296 285 (130-400) K/uL Neut # (Auto) 6.27 5.63 (1.40-6.50) K/uL Lymph # (Auto) 2.11 3.01 (1.20-3.40) K/uL [place] # (Auto) 0.39 0.44 (0.11-0.59) K/uL Eos # (Auto) 0.13 0.15 (0.00-0.50) K/uL Baso # (Auto) 0.06 0.04 (0.00-0.20) K/uL Comprehensive Metabolic Panel 10/08/25 10/08/25 Range/Units 03:36 09:51 Sodium 138 136 (136-145) mmol/L Potassium 3.4 L 3.4 L (3.5-5.1) mmol/L Chloride 104 101 (98-107) mmol/L Carbon Dioxide 29 29 (21-32) mmol/L BUN 12 11 (6-23) mg/dl Creatinine 0.79 0.75 (0.6-1.2) mg/dl Glucose 106 H 106 H (70-99(Fasting)) mg/dl Calcium 8.1 L 7.9 L (8.6-10.3) mg/dl AST 84 H (13-39) U/L ALT 114 H (7-52) U/L Alkaline Phosphatase 85 (34-104) U/L Total Protein 6.5 (6.0-8.3) gm/dl Albumin 3.6 (3.4-5.0) gm/dl Intake and Output 10/08/25 10/08/25 10/08/25 06:59 14:59 22:59 Intake Total 100 / 100 Balance 100 / 100 Intake: IV 100 / 100 Acetaminophen 1,000 mg In 100 100 / 100 ml @ 400 mls/hr IV NOW STA Rx#: [id number] Other: Weight 104.7 kg 103 kg Weight Measurement Method Standing Scale Patient Weight 10/09/25 06:59 Weight 103 kg Diagnostic Findings Echocardiogram 10/08/2025: LVEF 55-60% Mild MR Mild TR RVSP normal Mild aortic root dilatation Mild concentric LVH Grade II diastolic dysfunction PG Care Time/CCT Total # of Minutes Spent Total Time Spent with Patient: Total time spent is greater than 50% in coordination of care (as documented) at patient's floor/unit and/or counseling patient: Coding Level of Care Code 81771 IN/OBS CONSULT LVL 5,80M Diagnoses Atypical chest pain R07.89 Uncontrolled hypertension I10 Time Spent (min) 50
[2025-10-08 10:13] LABS: Hematocrit (blood only) 36.6 % (37.0-47.0); Hemoglobin 12.3 g/dL (12.0-16.0); Immature Granulocytes # (auto) 0.03 K/uL (0.01-0.20); Immature Granulocytes % (auto) 0.3 %; Mean Corpuscular Hemoglobin 28.5 pg (25.0-34.0); Mean Corpuscular Volume 84.7 fL (80.0-100.0); Platelet Count 285 K/uL (130-400); RDW Standard Deviation 40.2 fL (36.4-46.3); Red Blood Count 4.32 M/uL (4.20-5.40); White Blood Count 9.30 K/ul (4.8-10.8)
[2025-10-08 10:29] LABS: Anion Gap 6.0 (3-11); Blood Urea Nitrogen 11.0 mg/dl (6-23); Calcium 7.9 mg/dl (8.6-10.3); Carbon Dioxide 29.0 mmol/L (21-32); Chloride 101.0 mmol/L (98-107); Creatinine Clr Calc Pharmacy 111.9 ml/min; Glucose 106.0 mg/dl (70-99(Fasting)); Magnesium 1.9 mg/dl (1.7-2.4); Potassium 3.4 mmol/L (3.5-5.1); Sodium 136.0 mmol/L (136-145)
--- NOTE | 2025-10-08 10:38 | Ultrasound Report ---
ULTRASOUND BILATERAL LOWER EXTREMITY VENOUS CLINICAL HISTORY: Elevated d-dimer. Chest pain. COMPARISON STUDY: Bilateral lower extremity venous ultrasound dated 12/28/2024 TECHNIQUE: Real-time, grayscale, and color Doppler sonography of the deep veins of the right and left lower extremity was performed from the inguinal crease to the calf. Compression and augmentation wer e utilized. FINDINGS: There is no sonographic evidence of deep venous thrombosis identified in the right or left lower extremity. The common femoral, superficial femoral, and popliteal veins are patent and normally compressible bilaterally. The greater saphenous vein and the profunda femoris vein at the junction w ith the common femoral vein are clear in both legs. The visualized calf veins are patent bilaterally. IMPRESSION: There is no sonographic evidence of deep venous thrombosis identified in the right or lef t lower extremity. ACT 112: Negative or not required by law. Electronically signed by: Ruben Zhu M.D. 10/08/2025 10:37 AM
[2025-10-08] MEDS: NICOTINE 21 MG/24 HR TDSY TD SCH (10:46)
--- NOTE | 2025-10-08 11:45 | Communication Note ---
Date of Service: October 08, 2025 Patient seen and examined Reports left sided chest pain that started 3 days ago after a popping sensation with cough and carrying laundry basket Associated with SOB and weakness Reports significant family history of heart disease Still smokes 0.5-1ppd. Occasionally uses marijuana. Stated that last use was a week ago and she was concerned the pipe may have been contaminated/used for other drugs. Currently NPO CTA Chest negative for PE EKG did show TWI in leads II, III aVF and lateral V5.V6. Compared with old EKG from 12/2024 which had TWI in Lead I, II, V4-6, flattened in III, mild TWI in avF. Hence most of the changes are not new albeit more pronounced Trop 17.1->19.5->18.3 ?if real ACS vs related to drugs Awaiting Cards eval Counseled patient to avoid any drug use Other plans as detailed in H/P this AM
--- NOTE | 2025-10-08 13:10 | XCELERA ---
[id number]
[2025-10-08] MEDS: LOSARTAN POTASSIUM 25 MG TAB PO STA (15:07)
[2025-10-08] MEDS ORDERED: ONDANSETRON INJ 2 MG/ML 2 ML VIAL IV PRN (17:28)
--- NOTE | 2025-10-08 21:42 | Electrocardiogram Report ---
Test Reason : Blood Pressure : */* mmHG Vent. Rate : 84 BPM Atrial Rate : 84 BPM P-R Int : 142 ms QRS Dur : 88 ms QT Int : 366 ms P-R-T Axes : 75 67 -51 degrees QTcB Int : 432 ms Normal sinus rhythm Left ventricular hypertrophy with repolarization abnormality ( Sokolow-Preston ) Abnormal ECG When compared with ECG of 29-Dec-2024 06:10, ST now depressed in Inferior leads T wave inversion more evident in Inferior leads Confirmed by Joshua López ([id number]) on 10/08/2025 9:42:24 PM Referred By: REFERRED SELF Confirmed By: Joshua López
[2025-10-09] MEDS: LABETALOL HCL IV 5 MG/ML 20ML IV STA (01:08)
[2025-10-09] MEDS: IBUPROFEN 200 MG TAB PO PRN (09:08)
[2025-10-09] MEDS: REMOVE NICODERM PATCH SCH (09:10)
[2025-10-09] MEDS: LOSARTAN POTASSIUM 50 MG TAB PO SCH (09:10)
[2025-10-09 09:38] LABS: Hematocrit (blood only) 36.2 % (37.0-47.0); Hemoglobin 12.2 g/dL (12.0-16.0); Mean Corpuscular Hemoglobin 28.6 pg (25.0-34.0); Mean Corpuscular Volume 84.8 fL (80.0-100.0); Platelet Count 269 K/uL (130-400); RDW Standard Deviation 40.3 fL (36.4-46.3); Red Blood Count 4.27 M/uL (4.20-5.40); White Blood Count 8.14 K/ul (4.8-10.8)
[2025-10-09 09:55] LABS: Anion Gap 8.0 (3-11); Blood Urea Nitrogen 11.0 mg/dl (6-23); Calcium 7.9 mg/dl (8.6-10.3); Carbon Dioxide 28.0 mmol/L (21-32); Chloride 102.0 mmol/L (98-107); Creatinine Clr Calc Pharmacy 120.5 ml/min; Glucose 192.0 mg/dl (70-99(Fasting)); Potassium 3.5 mmol/L (3.5-5.1); Sodium 138.0 mmol/L (136-145)
--- NOTE | 2025-10-09 12:14 | Hospitalist Progress Note ---
Date of Service October 09, 2025 Assessment & Plan (1) Chest pain: Plan: 45-year-old female with past medical history significant for hypertension, ongoing tobacco use, drug abuse in remission, bipolar disorder, anxiety and panic attacks, fibromyalgia, asthma, history of CAD, history of hepatitis C as per records comes in because of chest pain. Chest pain CTA Chest negative for PE EKG changes are not new Trop 17.1->19.5->18.3 TTE 55-60%, mild MR, mild TR, Grade II DD Tox screen +amphetamine/meth Hypertensive urgency Continue increased losartan and amlodipine started by Cardiology Monitor BP History of CAD as per records [place] in 2023 as per records. Seems she had cardiac cath in [facility] in [place], [place]. No stents placed but she was told has CAD as per records. On aspirin and metoprolol succinate Ongoing tobacco abuse Counseling History of drug abuse On buprenorphine and naloxone Provided counseling about drugs. Stated that she smokes marijuana, last use was a week ago and she was concerned the pipe may have been contaminated/used for other drug Anxiety Panic attacks On lorazepam History of hepatitis C per records DVT prophylaxis- SCDs for now Code status - Full code I spent a total of 45 minutes coordinating, documenting and providing care for this patient excluding time spent in performance of separately billed services Admission and Anticipated Discharge Date Admission Date: October 08, 2025 Subjective Patient seen and examined Reports chest pain and feels like burning, associated with nausea No cough, SOB Physical Exam Constitutional: + well hydrated; no acute distress Eyes: PERRL, conjunctivae normal, anicteric sclerae ENMT: external ear and nose normal, oropharynx normal Respiratory: normal respiratory effort, lungs clear to auscultation Cardiovascular: Rate/Rhythm: regular rate and regular rhythm Gastrointestinal (Abdomen): normal bowel sounds, soft, nontender, no hepatosplenomegaly Musculoskeletal: No pedal edema Neurologic: PERRL, EOMI, accommodation nl, no face palsy, no dysarthria Results & Data Results & Data Vital Signs (Past 12 Hours) Vital Signs Temp Pulse Pulse Resp BP BP BP 10/09/25 08:24 37.0 C 77 18 179/103 H 10/09/25 07:45 65 10/09/25 07:45 10/09/25 05:26 36.5 C 72 20 156/84 H 10/09/25 02:04 69 10/09/25 01:23 67 163/97 H 10/09/25 01:08 73 176/104 H 10/09/25 00:43 73 177/104 H 10/09/25 00:42 72 176/104 H 10/09/25 00:35 73 176/104 H 10/09/25 00:20 70 177/104 H Pulse Ox O2 Del Method 10/09/25 08:24 97 Room Air 10/09/25 07:45 10/09/25 07:45 Room Air 10/09/25 05:26 94 Room Air 10/09/25 02:04 10/09/25 01:23 10/09/25 01:08 10/09/25 00:43 10/09/25 00:42 10/09/25 00:35 10/09/25 00:20 Laboratory Results Abnormal lab results 10/08/25 10/09/25 Range/Units 15:53 09:11 Hct 36.2 L (37.0-47.0) % MPV 9.2 L (9.4-12.4) fL Glucose 192 H (70-99(Fasting)) mg/dl Calcium 7.9 L (8.6-10.3) mg/dl Troponin I High Sens 14.9 H (0-14) pg/ml
[2025-10-09] MEDS: ALUMINUM/MAGNESIUM SUSP 30 ML UDC PO STA (12:21)
--- NOTE | 2025-10-09 15:18 | Cardiology Progress Note ---
Date of Service October 09, 2025 Assessment & Plan (1) Atypical chest pain: (2) Uncontrolled hypertension: Plan Assessment: 45 year old female admitted for atypical chest pain, and hypertensive urgency. As pe patient she smoked street weed which could have been laced with other drugs -> Tox screen positive for methamphetamine Patient reportedly had Type II MO associated with Influenza B and bacterial PNA in [place] in 2023 HTN - uncontrolled Chest Pain - atypical Abnormal Troponin - likely due to demand ischemia and not indicative of Type I [place] Substance abuse Hepatitis C Electrolyte abn - defer to hospitalist correct and f/u electrolytes f/u renal function ASA 81mg po daily continue Metoprolol xl continue losartan Change Norvasc to Procardia XL and adjust dose keeping systolic BP between 100- 140 mmHg DVT prophylaxis drug abuse counseling salt restriction Admission and Anticipated Discharge Date Admission Date: October 08, 2025 Subjective Patient on exam is lying in bed in NAD; no c/o cp, sob, palpitations, dizziness, LOC, cough, fever, nausea, vomiting, abdominal pain, urinary or bowel problem problems Review of Systems Review of Systems: as per HPI Physical Exam Constitutional: well developed and well nourished; no acute distress and not ill appearing Neck: normal visual inspection and trachea midline Respiratory: normal respiratory effort, lungs clear to auscultation Cardiovascular: Rate/Rhythm: regular rate and regular rhythm Heart Sounds: normal S1 and normal S2; no murmur Vessels: dorsalis pedis pulses present; no JVD Extremities: no edema Skin: no rashes, warm and dry Psychiatric: A+Ox3, euthymic affect Results & Data Vital Signs (Past 12 Hours) Vital Signs Temp Pulse Pulse Resp BP BP Pulse Ox 10/09/25 14:45 70 10/09/25 12:55 73 148/81 H 10/09/25 12:28 66 180/97 H 10/09/25 12:27 36.6 C 66 18 180/97 H 96 10/09/25 08:24 37.0 C 77 18 179/103 H 97 10/09/25 07:45 65 10/09/25 07:45 10/09/25 05:26 36.5 C 72 20 156/84 H 94 O2 Del Method 10/09/25 14:45 10/09/25 12:55 10/09/25 12:28 10/09/25 12:27 Room Air 10/09/25 08:24 Room Air 10/09/25 07:45 10/09/25 07:45 Room Air 10/09/25 05:26 Room Air Laboratory Results Laboratory Results WBC 8.14 K/ul (4.8-10.8) 10/09/25 09:11 RBC 4.27 M/uL (4.20-5.40) 10/09/25 09:11 Hgb 12.2 g/dL (12.0-16.0) 10/09/25 09:11 Hct 36.2 % (37.0-47.0) L 10/09/25 09:11 MCV 84.8 fL (80.0-100.0) 10/09/25 09:11 MCH 28.6 pg (25.0-34.0) 10/09/25 09:11 MCHC 33.7 g/dL (32.0-36.0) 10/09/25 09:11 RDW Std Deviation 40.3 fL (36.4-46.3) 10/09/25 09:11 RDW Coeff of Solo 13.1 % (11.5-14.5) 10/09/25 09:11 Plt Count 269 K/uL (130-400) 10/09/25 09:11 MPV 9.2 fL (9.4-12.4) L 10/09/25 09:11 Immature Gran % (Auto) 0.3 % 10/08/25 09:51 Neut % (Auto) 60.6 % 10/08/25 09:51 Lymph % (Auto) 32.4 % 10/08/25 09:51 Briscoe % (Auto) 4.7 % 10/08/25 09:51 Eos % (Auto) 1.6 % 10/08/25 09:51 Baso % (Auto) 0.4 % 10/08/25 09:51 Neut # (Auto) 5.63 K/uL (1.40-6.50) 10/08/25 09:51 Lymph # (Auto) 3.01 K/uL (1.20-3.40) 10/08/25 09:51 Briscoe # (Auto) 0.44 K/uL (0.11-0.59) 10/08/25 09:51 Eos # (Auto) 0.15 K/uL (0.00-0.50) 10/08/25 09:51 Baso # (Auto) 0.04 K/uL (0.00-0.20) 10/08/25 09:51 Immature Gran # (Auto) 0.03 K/uL (0.01-0.20) 10/08/25 09:51 D-Dimer 640 ug/L FEU (0-500) H* 10/08/25 03:36 Sodium 138 mmol/L (136-145) 10/09/25 09:11 Potassium 3.5 mmol/L (3.5-5.1) 10/09/25 09:11 Chloride 102 mmol/L (98-107) 10/09/25 09:11 Carbon Dioxide 28 mmol/L (21-32) 10/09/25 09:11 Anion Gap 8 (3-11) 10/09/25 09:11 BUN 11 mg/dl (6-23) 10/09/25 09:11 Creatinine 0.70 mg/dl (0.6-1.2) 10/09/25 09:11 Est Cr Clr Drug Dosing 120.5 ml/min 10/09/25 09:11 eGFR 109.30 10/09/25 09:11 BUN/Creatinine Ratio 15.7 (10-20) 10/09/25 09:11 Glucose 192 mg/dl (70-99(Fasting)) H 10/09/25 09:11 Calcium 7.9 mg/dl (8.6-10.3) L 10/09/25 09:11 Magnesium 1.9 mg/dl (1.7-2.4) 10/08/25 09:51 Total Bilirubin 0.3 mg/dl (0.2-1.0) 10/08/25 03:36 AST 84 U/L (13-39) H 10/08/25 03:36 ALT 114 U/L (7-52) H 10/08/25 03:36 Alkaline Phosphatase 85 U/L (34-104) 10/08/25 03:36 Troponin I High Sens 14.9 pg/ml (0-14) H 10/08/25 15:53 Total Protein 6.5 gm/dl (6.0-8.3) 10/08/25 03:36 Albumin 3.6 gm/dl (3.4-5.0) 10/08/25 03:36 Globulin 2.9 gm/dl (2.5-4.0) 10/08/25 03:36 Albumin/Globulin Ratio 1.2 (0.9-2) 10/08/25 03:36 Lipase 28 U/L (11-82) 10/08/25 03:36 Urine Opiates Screen Neg (Neg) 10/08/25 07:15 Ur Methadone, Qual Neg (Neg) 10/08/25 07:15 Urine Fentanyl Screen Neg (Neg) 10/08/25 07:15 Urine Barbiturates Neg (Neg) 10/08/25 07:15 Ur Phencyclidine (PCP) Neg (Neg) 10/08/25 07:15 U Amphetamin/Meth Scrn Pos (Neg) H 10/08/25 07:15 MDMA (Ecstasy) Screen Neg (Neg) 10/08/25 07:15 U Benzodiazepines Scrn Neg (Neg) 10/08/25 07:15 Ur Cocaine Metabolite Neg (Neg) 10/08/25 07:15 U Marijuana (THC) Screen Neg (Neg) 10/08/25 07:15 Impressions Chest X-Ray 10/08/25 02:55 EXAM: XR chest 1V portable CLINICAL HISTORY: Chest pain, nonspecific TECHNIQUE: Radiograph of chest was acquired. COMPARISON: None. FINDINGS: The lungs are clear and well-expanded with no pulmonary infiltrate or pleural effusion. The cardiomediastinal silhouette is within normal limits. No acute osseous abnormality. IMPRESSION: 1. No acute cardiopulmonary disease. Electronically signed by Freddie Billingsley 10-08-2025 03:26 AM Chest CTA 10/08/25 05:11 EXAM: CT angio chest PE protocol CLINICAL HISTORY: Chest pain, +Dimer TECHNIQUE: Contiguous axial images were obtained from the neck base through the upper abdomen following intravenous administration of iodinated contrast material. Angiographic images were processed, 3D MIP images were acquired for interpretation. If IV contrast material had not been administered, the likelihood of detecting abnormalities relevant to the patient's condition would have been substantially decreased. Coronal and sagittal 3-D MIPs were likewise performed and indicated to increase the sensitivity of detectin diffuse clinically relevant pathology. CT scan was performed according to ALARA (as low as reasonably achievable). COMPARISON: None. FINDINGS: Few atelectatic bands are noted involving left upper lobe. Adequate contrast bolus without evidence of pulmonary embolism. The central airways are patent. The lungs are clear. No pleural effusion. The heart, aorta, and pulmonary arteries are of normal size and configuration. There are no appreciable coronary artery and aortic atherosclerotic calcifications. No pericardial effusion is identified. The thyroid is unremarkable. No mediastinal, hilar, or axillary lymphadenopathy is noted. No suspicious lytic or sclerotic osseous lesions are identified. IMPRESSION: 1. No evidence of pulmonary embolism. Few atelectatic bands are noted involving left upper lobe. Electronically signed by Freddie Billingsley 10-08-2025 06:37 AM Venous Doppler Study 10/08/25 08:38 ULTRASOUND BILATERAL LOWER EXTREMITY VENOUS CLINICAL HISTORY: Elevated d-dimer. Chest pain. COMPARISON STUDY: Bilateral lower extremity venous ultrasound dated 12/28/2024 TECHNIQUE: Real-time, grayscale, and color Doppler sonography of the deep veins of the right and left lower extremity was performed from the inguinal crease to the calf. Compression and augmentation were utilized. FINDINGS: There is no sonographic evidence of deep venous thrombosis identified in the right or left lower extremity. The common femoral, superficial femoral, and popliteal veins are patent and normally compressible bilaterally. The greater saphenous vein and the profunda femoris vein at the junction with the common femoral vein are clear in both legs. The visualized calf veins are patent bilaterally. IMPRESSION: There is no sonographic evidence of deep venous thrombosis identified in the right or left lower extremity. ACT 112: Negative or not required by law. Electronically signed by: Ruben Zhu M.D. 10/08/2025 10:37 AM Diagnostic Findings Cardiac Enzymes 10/08/25 Range/Units 15:53 Troponin I High Sens 14.9 H (0-14) pg/ml CBC 10/09/25 Range/Units 09:11 WBC 8.14 (4.8-10.8) K/ul RBC 4.27 (4.20-5.40) M/uL Hgb 12.2 (12.0-16.0) g/dL Hct 36.2 L (37.0-47.0) % Plt Count 269 (130-400) K/uL Comprehensive Metabolic Panel 10/09/25 Range/Units 09:11 Sodium 138 (136-145) mmol/L Potassium 3.5 (3.5-5.1) mmol/L Chloride 102 (98-107) mmol/L Carbon Dioxide 28 (21-32) mmol/L BUN 11 (6-23) mg/dl Creatinine 0.70 (0.6-1.2) mg/dl Glucose 192 H (70-99(Fasting)) mg/dl Calcium 7.9 L (8.6-10.3) mg/dl Intake and Output 10/09/25 10/09/25 10/09/25 06:59 14:59 22:59 Intake Total 240 / 1080 860 / 860 Balance 240 / 1080 860 / 860 Intake: Oral 240 / 1080 860 / 860 Other: # Unmeasured Voids 1 4 Weight 104 kg Weight Measurement Method Built in [facility] Care Time/CCT Total # of Minutes Spent Total Time Spent with Patient: Total time spent is greater than 50% in coordination of care (as documented) at patient's floor/unit and/or counseling patient: Coding Level of Care Code 89008 SUB INP/OBS CARE 3/50MIN Diagnoses Atypical chest pain R07.89 Uncontrolled hypertension I10
[2025-10-09 23:57] VITALS: TEMP 98.4
[2025-10-10 05:57] LABS: Hematocrit (blood only) 35.2 % (37.0-47.0); Hemoglobin 11.6 g/dL (12.0-16.0); Mean Corpuscular Hemoglobin 28.3 pg (25.0-34.0); Mean Corpuscular Volume 85.9 fL (80.0-100.0); Platelet Count 263 K/uL (130-400); RDW Standard Deviation 40.4 fL (36.4-46.3); Red Blood Count 4.10 M/uL (4.20-5.40); White Blood Count 8.31 K/ul (4.8-10.8)
[2025-10-10 06:15] LABS: Anion Gap 6.0 (3-11); Blood Urea Nitrogen 12.0 mg/dl (6-23); Calcium 8.1 mg/dl (8.6-10.3); Carbon Dioxide 28.0 mmol/L (21-32); Chloride 105.0 mmol/L (98-107); Creatinine Clr Calc Pharmacy 131.8 ml/min; Glucose 117.0 mg/dl (70-99(Fasting)); Potassium 3.6 mmol/L (3.5-5.1); Sodium 139.0 mmol/L (136-145)
[2025-10-10] MEDS: NIFEdipine EXTENDED REL 30 MG TABCR PO SCH (08:14)
[2025-10-10] MEDS: guaiFENesin 600 MG TABCR PO PRN (08:14)
[2025-10-10 08:23] VITALS: BP 169/91; RESP 18; O2SAT 96
--- NOTE | 2025-10-10 09:35 | Discharge Summary ---
Date of Service October 10, 2025 Admission HPI Per Admitting Provider 45-year-old female with past medical history significant for hypertension, ongoing tobacco use, drug abuse in remission, bipolar disorder, anxiety and panic attacks, fibromyalgia, asthma, history of CAD, history of hepatitis C as per records comes in because of chest pain. Patient states since last three days is having left-sided chest pain. Initially the pain started with popping feeling in the chest after cough and also after climbing stairs carrying laundry basket. Initially pain was radiating to the right side of her abdomen and back. But currently pain is more located left side of her chest. Is constant pain. Sharp type of pain. 6/10 in severity. Patient thinks the pain is more with activity. Denies any headache. Vision is okay. No runny nose or sore throat. No cough. No fevers. Denies shortness of breath. No nausea. Patient states she always sweats. No abdominal pain. Normal bowel and bladder movements. Blood pressures was high in the ER. Patient states blood pressure medications are the same doses since last 1 year and lately blood pressure was somewhat running high at home. Past medical history. As mentioned above. Past surgical history. Tonsillectomy and adenoidectomy. Full dental extraction. Laparoscopic procedures of the abdomen. Cholecystectomy. Tubal ligation. Social history. Smokes 1 pack a day for last 34 years per record. Denies alcohol use. Occasional marijuana use. Family history. Mother had substance disorder. Mental disorder. Thyroid disorder. Hypertension. Asthma. Arthritis. Father has hypertension and asthma. Brother had CAD. Hypertension. Admission Exam Per Admitting Provider General- Not in distress Head- atraumatic Eyes- PERRL. ENT- oropharynx clear Neck- supple, no JVD. Lungs- clear to auscultation no wheezing or crackles Heart- regular rhythm; no murmur, no gallop. Abdomen- normal bowel sounds, soft, nontender, no distension Extremities- no pretibial edema, no erythema seen Neuro- alert, oriented PERRL, no facial palsy; no dysarthria; moves extremities Principal Diagnosis Chest pain Poorly controlled hypertension Discharge Exam Constitutional + well hydrated; no acute distress Eyes PERRL, conjunctivae normal, anicteric sclerae ENMT external ear and nose normal, oropharynx normal Respiratory normal respiratory effort, lungs clear to auscultation Cardiovascular Rate/Rhythm: regular rate and regular rhythm Gastrointestinal (Abdomen) normal bowel sounds, soft, nontender, no hepatosplenomegaly Neurologic PERRL, EOMI, accommodation nl, no face palsy, no dysarthria Psychiatric A+Ox3, euthymic affect Discharge Data Allergies Allergy/AdvReac Type Severity Reaction Status Date / Time codeine Allergy Intermediate RASH Verified 10/08/25 03:01 ketorolac Allergy Mild RASH Verified 10/08/25 03:01 morphine Allergy Mild RASH Verified 10/08/25 03:01 tromethamine Allergy Mild RASH Verified 10/08/25 03:01 azithromycin AdvReac Mild Abdominal Verified 10/08/25 03:01 Pain Consultations 10/08/25 05:10 ED Decision to Admit Stat 10/08/25 08:38 Consult Cardiology Routine Ordered Studies 10/08/25 05:11 CT angio chest PE protocol Stat 10/08/25 08:38 US venous doppler LE Routine Hospital Course (1) Chest pain: 45-year-old female with past medical history significant for hypertension, ongoing tobacco use, drug abuse in remission, bipolar disorder, anxiety and panic attacks, fibromyalgia, asthma, history of CAD, history of hepatitis C as per records comes in because of chest pain. Chest pain CTA Chest negative for PE EKG changes are not new Trop 17.1->19.5->18.3 TTE 55-60%, mild MR, mild TR, Grade II DD Tox screen +amphetamine/meth Was evaluated by cardiology who noted abnormal Troponin - likely due to demand ischemia and not indicative of Type I MO Patient is to follow up with Cardiology outpatient for further eval and stress test Hypertensive urgency MEDICAL DETAILIST losartan was increased to 50mg daily and started on nifedipine ER 60mg daily History of CAD as per records [place] in 2023 as per records. Seems she had cardiac cath in [facility] in [place], [place]. No stents placed but she was told has CAD as per records. On aspirin and metoprolol succinate Ongoing tobacco abuse Counseled regarding this. She is not currently interested in quitting History of drug abuse On buprenorphine and naloxone Provided counseling about drugs. Stated that she smokes marijuana, last use was a week ago and she was concerned the pipe may have been contaminated/used for other drug Anxiety Panic attacks She stated she was on ativan some months ago but PDMP review only showed buprenorphine naloxone Advised to follow up with psych Total Time Total Time Spent Total Time Spent (In Minutes): 40 Total Time Includes: Examination of the Patient, Discharge Planning and Medication Reconciliation Discharge Plan Discharge Items Patient Disposition: Home - Self-Care Reason For Visit: CHEST PAIN, HTN URGENCY Discharge Diagnosis: Chest pain Poorly controlled hypertension Condition on Discharge: Good Activity: Resume your previous activity Non-emergency contact: Primary Care Provider and Mental Health Nurse Call non-emergency contact if: you have any medication questions and your symptoms worsen Follow-up/Referrals: Layla Alejandro CRNP [Primary Care Provider] - Diet: Heart Healthy Addtl Attending Provider Instructions: Ms Verdugo You were hospitalized and managed for the aforementioned diagnoses. You are being discharged home. Your losartan was increased to 50mg daily and you were started on Nifedipine 60mg daily. Please ensure follow up with Cardiology outpatient for further evaluation. Please follow up with your Primary Doctor. It was a pleasure taking care of you Pending Studies at Discharge: No Stand-Alone Forms: My [email or web address], Smoking Cessation Medications and DC Order Prescriptions: New nifedipine [Procardia XL] 30 mg Tablet Extended Release 24hr 60 mg PO QAM 30 Days Qty: 60 0RF hydroxyzine HCl 25 mg tablet 25 mg PO BID PRN (Reason: anxiety) Qty: 20 0RF Continued aspirin 81 mg Tablet,Delayed Release (Dr/Ec) 81 mg PO DAILY buprenorphine-naloxone 8-2 mg tablet, sublingual 1 tab sublingual TID guaifenesin [Mucinex] 600 mg Tablet Extended Release 12hr 1,200 mg PO Q12 PRN (Reason: congestion) Qty: 30 0RF metoprolol succinate 25 mg Tablet Extended Release 24 Hr 25 mg PO QAM Qty: 30 0RF ibuprofen 200 mg Tablet 800 mg PO Q6H PRN (Reason: PAIN/ACHES) potassium gluconate 595 mg (99 mg) Tablet 595 mg PO DAILY Changed losartan 25 mg Tablet 50 mg PO QAM Qty: 60 0RF Discharge Orders: Discharge Order (Routine); Ordered 10/10/25 Ordered By: Orin Kim Admission Data Admit Date/Time: 10/08/25 06:09 Attending Provider: Orin Kim I. Admit Provider: Kev Marcos Primary Care Provider: Layla Alejandro Other Providers: Kev Marcos; Josie Kelly; Franki Miller; Otilio Elliott; Jun Martinez; Uli Russell; Salvador Sahu; Celine Burns; Batsheva Valdovinos; Yamilka Zimmerman; Roula Mata; Josie Alanis; John Castañeda; Ramsey Reyes; Radha Powell; Kyra Mahoney; Sarah Mccollum; Jarrell Douglas; Donn Mayo; Rosa Elliott; Zaida Esquivel; Antonio Curran; Jose D Simmons Other Interventions: Discharge Summary Assessment (RN) Last Done: 10/10/25 09:44
[2025-10-10 09:49] VITALS: PULSE 67
--- NOTE | 2025-10-10 19:41 | Electrocardiogram Report ---
Test Reason : Blood Pressure : */* mmHG Vent. Rate : 75 BPM Atrial Rate : 75 BPM P-R Int : 148 ms QRS Dur : 90 ms QT Int : 394 ms P-R-T Axes : 65 49 268 degrees QTcB Int : 439 ms Normal sinus rhythm Voltage criteria for left ventricular hypertrophy T wave abnormality, consider inferior ischemia Abnormal ECG When compared with ECG of 08-Oct-2025 02:51, Non-specific change in ST segment in Lateral leads T wave inversion more evident in Lateral leads Confirmed by Michelle Renae ([id number]) on 10/10/2025 7:41:18 PM Referred By: REFERRED SELF Confirmed By: Michelle Renae
[2025-10-13 11:03] LABS: Amphetamine Urine, Confirm NEGATIVE ng/mL (<250); Methamphetamine, Ur Confirm 1469 ng/mL (<250)
== END 2025-10-10 10:47 | disposition home or self-care (01) ==
LOC: ED 02:42 → INTOOBSV 06:09 → 4W 06:09